=== PATIENT | female | born 1970 | race Caucasian/White ===

== ENCOUNTER → 2017-02-24 13:46 | Outpatient (CLI) | payer BC, SELFPAY ==
[2017-02-24 15:18] LABS: Basophils # 0.1 K/mm3 (0-0.2); Basophils % 0.5 % (0.1-2.0); Eosinophils # 0.1 K/mm3 (0.0-0.4); Eosinophils % 0.7 % (0.1-12.0); Hematocrit 42.2 % (37.0-47.0); Hemoglobin 13.5 g/dL (12.2-16.2); Lymphocytes # 3.4 K/mm3 (0.7-4.5); Lymphocytes % 34.4 K/mm3 (10-50); Mean Corpuscular HGB Conc 31.9 g/dL (31.8-35.4); Mean Corpuscular Hemoglobin 29.2 pg (27.0-31.2); Mean Corpuscular Volume 91.5 fl (81-99); Mean Platelet Volume 7.9 fl (7.4-10.4); Monocytes # 0.6 K/mm3 (0.1-1.0); Neutrophils # 5.7 K/mm3 (1.8-7.8); Neutrophils % 58.3 % (37.0-80.0); Platelet Count 383 K/mm3 (142-424); Red Blood Count 4.61 M/mm3 (4.20-5.40); White Blood Count 9.8 K/mm3 (4.8-10.8)
[2017-02-24 15:34] LABS: Alanine Aminotransferase 25 U/L (12-78); Albumin Level 3.6 gm/dL (3.4-5.0); Albumin/Globulin Ratio 1.1 (1.1-1.8); Alkaline Phosphatase 92 U/L (46-116); Anion Gap 12.9 mEq/L (5-15); Aspartate Amino Transferase 19 U/L (15-37); Bilirubin,Total 0.2 mg/dL (0.2-1.0); Blood Urea Nitrogen 15 mg/dL (7-18); Calcium 8.5 mg/dL (8.5-10.1); Carbon Dioxide 27 mmol/L (21.0-32.0); Chloride 105 mmol/L (98-107); Creatinine,Serum 0.61 mg/dL (0.55-1.02); Estimated Glomerular Filt Rate 106 ml/min (>60); Free T4 (Free Thyroxine) 1.12 ng/dl (0.76-1.46); GFR (African American) 128 ML/MIN (>60); Globulin 3.3 gm/dl (1.3-3.2); Glucose 86 mg/dL (74-106); Potassium 3.9 mmoL/L (3.5-5.1); Sodium 141 mmol/L (136-145); Total Protein,Serum 6.9 gm/dL (6.4-8.2)
[2017-02-26 17:01] LABS: Antinuclear Antibodies, IFA Negative (.); Endomysial IgA Antibody Negative (Negative); Immunoglobulin E, Total 14 IU/mL (0-100); Tissue Transglutaminase IgA Ab <2 U/mL (0-3); Tissue Transglutaminase IgG Ab <2 U/mL (0-5); Vitamin D 25 Hydroxy 25.7 ng/mL (30.0-100.0)
[2017-02-26 17:02] LABS: Deamidated Gliadin Abs, IgA 6 units (0-19); Deamidated Gliadin Abs, IgG 3 units (0-19); Thyroglobulin Level <1.0 IU/mL (0.0-0.9); Thyroid Peroxidase Antibodies 8 IU/mL (0-34)
[2017-02-27 09:13] LABS: Reticulin IgA Antibody Negative titer (Neg:<1:2.5)
[2017-03-09 17:12] LABS: Beef (Bos spp) IgE <0.10 kU/L (<0.35); Lamb/Mutton (Ovis spp) IgE <0.10 kU/L (<0.35)
== END ==
PROVIDERS: PCP Allergy & Immunology; Visit Provider Allergy & Immunology
DX: E55.9 Vitamin D deficiency, unspecified (principal); L29.9 Pruritus, unspecified
CPT/HCPCS: 36415; 80053; 82652; 82776; 82785; 84439; 84443; 85025; 86038; 86256; 86376; 86800

== ENCOUNTER → 2018-02-10 08:09 | Outpatient (CLI) | payer BC, SELFPAY ==
--- NOTE | 2018-02-10 08:12 | MM_ITS ---
MM Dig screening mamm BI w/CAD CAD Screening COMPARISON: Digital mammograms with CAD 02/21/2014 INDICATION: There is no personal or family history of breast cancer TECHNIQUE: Standard CC and MLO images were obtained. R2 CAD reviewed. FINDINGS: Scattered fibroglandular densities are seen in both breasts slightly more prominent left breast than right. There is no new or suspicious lesion in either breast and there are no suspicious microcalcifications. IMPRESSION: Fibrofatty parenchyma no suspicious lesion seen BI-RADS Category: 1 Negative RECOMMENDED FOLLOW-UP: 1YR - 1 YEAR FOLLOW-UP (A letter has been sent to the patient regarding results of the study.)
== END ==
PROVIDERS: PCP Nurse Practitioner Family; Visit Provider Nurse Practitioner Family
DX: Z12.31 Encounter for screening mammogram for malignant neoplasm of breast (principal)
CPT/HCPCS: 77067

== ENCOUNTER 2019-12-08 16:12 | Emergency (ER) | payer BC, SELFPAY ==
[2019-12-08 17:05] VITALS: BP 142/80; PULSE 108; RESP 19; TEMP 36.8; O2SAT 99; BMI 33.6
--- NOTE | 2019-12-08 17:27 | HMH.EDUTC ---
[facility] [place] Clinical Impression: Right otitis media Qualifiers: Otitis media type: suppurative Chronicity: acute Recurrence: non-recurrent Spontaneous tympanic membrane rupture: without spontaneous rupture Qualified Code(s): H66.001 - Acute suppurative otitis media without spontaneous rupture of ear drum, right ear Disposition: Home, Self-Care Condition on Discharge: Good Instructions: DI for Otitis Media (Middle Ear Infection)-Child Additional Instructions: Call if rash develops (consistent with shingles) Prescriptions: clindamycin HCL [Cleocin HCl] 300 mg PO TID 10 Days #30 cap Transmission Status: Pending to [email or web address] predniSONE [Prednisone 20mg Tab] 20 mg PO BID 5 Days #10 tab Transmission Status: [email or web address] Referrals: Aura Stapleton [Primary Care Provider] - Time of Disposition: 17:35 Medical Decision Making - Albino Inquiry Pt receiving controlled substance: No Vital Signs: 12/08/19 17:05 Temperature 98.2 F Temperature Source Oral Pulse Rate [Right Brachial] 108 H Respiratory Rate 19 Blood Pressure [Right Arm] 142/80 H Blood Pressure Mean [Right Arm] 100 Blood Pressure Source [Right Arm] Automatic Cuff Blood Pressure Position [Right Arm] Sitting 02 Sat by Pulse Oximetry 99 Oxygen Delivery Method Room Air [facility] [place] - General Stated complaint: R ear pain Time Seen by Provider: 12/08/19 17:31 Mode of Arrival: Ambulatory Source of Information: Patient Limitations: No Limitations Description of Symptoms (Recalled from Triage Doc. by RN): PATIENT C/O PAIN IN RIGHT EAR, HEAD AND NECK SINCE YESTERDAY HEENT Symptoms (Recalled from RN notes): Yes Resp Symptoms (Recalled from RN notes): No Skin Symptoms (Recalled from RN notes): No MS Symptoms (Recalled from RN notes): No Functional Status (Recalled from RN notes): WNL - History of Present Illness Provider Complaint: Right ear pain, pain in right eye and right side of face since last night. No rash. No fever. Has taken Motrin, Sudafed with a little relief. Onset (ago): day(s) (1) Location: face Radiation: non-radiation Relieving factors: none Exacerbating factors: none Associated symptoms: denies other symptoms Treatments prior to arrival: none - Related Data Home Medications Medication Instructions Recorded Confirmed Cimetidine [Tagamet Hb] 200 mg PO DAILY 01/02/19 01/24/19 PARoxetine HCL [Paxil 20mg Tablet] 20 mg PO DAILY 01/02/19 01/24/19 Previous Rx's Medication Instructions Recorded Benzonatate [Tessalon Perle 100mg 100 mg PO TIDP PRN #30 cap 01/24/19 Cap] Brompheniramine/Pseudoephed/Dm 5 ml PO Q6HP PRN #240 syrup 01/24/19 [Bromfed Dm Cough Syrup] Doxycycline Hyclate [Doxycycline 100 mg PO Q12 10 Days #20 cap 01/24/19 100mg Capsule] predniSONE [Prednisone 20mg 20 mg PO BID 4 Days #8 tab 01/24/19 Tab] clindamycin HCL [Cleocin HCl] 300 mg PO TID 10 Days #30 cap 12/08/19 predniSONE [Prednisone 20mg 20 mg PO BID 5 Days #10 tab 12/08/19 Tab] Allergies Allergy/AdvReac Type Severity Reaction Status Date / Time amoxicillin [AMOXICILLIN] Allergy Unknown Verified 06/01/17 13:48 cefaclor [CEFACLOR] Allergy Unknown Verified 06/01/17 13:48 cephalexin [CEPHALEXIN] Allergy Unknown Verified 06/01/17 13:48 oxycodone [OXYCODONE] Allergy Unknown Verified 06/01/17 13:48 Penicillins [PENICILLINS] Allergy Unknown Verified 06/01/17 13:48 povidone-iodine Allergy Unknown Verified 06/01/17 13:48 [From BETADINE] Sulfa (Sulfonamide Allergy Unknown Verified 06/01/17 13:48 Antibiotics) [SULFA (SULFONAMIDE ANTIBIOTICS)] sumatriptan [SUMATRIPTAN] Allergy Unknown Verified 06/01/17 13:48 - Worker's Comp Is this a Worker's Comp case?: No H History - Hepatitis A Screen Drug use history?: No High risk sexual behaviors?: No History of sexually transmitted infection?: No Currently employed?: No Childcare worker?: No Do you have indoor plumbing?:
[2019-12-08 17:39] VITALS: BP 142/80; PULSE 108; RESP 19; TEMP 36.8; O2SAT 99
== END 2019-12-08 17:44 | disposition home or self-care (01) ==
PROVIDERS: Emergency Provider Physician Assistant; PCP Nurse Practitioner Family
DX: H66.001 Acute suppurative otitis media without spontaneous rupture of ear drum, right ear (principal); Z88.0 Allergy status to penicillin; Z88.2 Allergy status to sulfonamides; Z88.5 Allergy status to narcotic agent
CPT/HCPCS: 99201

== ENCOUNTER → 2019-12-22 16:45 | Outpatient (CLI) | payer BC, SELFPAY ==
--- NOTE | 2019-12-22 16:47 | MM_ITS ---
PROCEDURE: MM DIG SCREENING MAMM BI W/CAD Digital Breast Tomosynthesis Included CLINICAL INDICATION: SCREENING There is no personal or family history of breast cancer. COMPARISON: MG DMSB DIG MAMM-SCREEN SOFIE from 02/21/2014 MG [facility]BI MM Dig screening mamm BI w/CAD from 02/10/2018 TECHNIQUE: Standard CC and MLO images and 3D Tomosynthesis was obtained. R2 CAD reviewed. FINDINGS: The breasts are composed primarily of fat with minimal scattered fibroglandular densities in each breast. There is a mole marker on each breast. There is no suspicious lesion in either breast and no suspicious microcalcifications. IMPRESSION: Fibrofatty parenchyma with no suspicious lesions seen BI-RAD Category: 2 Benign Finding(s) FOLLOW-UP: 1YR 1 Year Follow-up (A letter has been sent to the patient regarding results of the study.) Dictated by: Dr. Lamont Riley MD 12/26/2019 14:06 Dr. Lamont Riley MD in [place] 12/26/2019 14:06
== END ==
PROVIDERS: PCP Nurse Practitioner Family; Visit Provider Nurse Practitioner Family
DX: Z12.31 Encounter for screening mammogram for malignant neoplasm of breast (principal)
CPT/HCPCS: 77063; 77067

== ENCOUNTER 2020-10-16 13:17 | Emergency (ER) | payer BC, SELFPAY ==
[2020-10-16 14:09] VITALS: PULSE 96; RESP 20; TEMP 36.9; O2SAT 95; BMI 29.7
--- NOTE | 2020-10-16 14:09 | HMH.EDUTC ---
[facility] [place] Impression: Viral syndrome, Exposure to COVID-19 virus Otitis media Qualifiers: Otitis media type: suppurative Chronicity: acute Laterality: bilateral Recurrence: non-recurrent Spontaneous tympanic membrane rupture: without spontaneous rupture Qualified Code(s): H66.003 - Acute suppurative otitis media without spontaneous rupture of ear drum, bilateral Disposition: Home, Self-Care Condition on Discharge: Good Instructions: Middle Ear Infection, DI for COVID-19 (Suspected or Confirmed ), Preventing the Spread of Coronavirus Discharge Instructions Additional Instructions: Drink plenty of fluids. Take tylenol or ibuprofen for pain or fever. Take the medications as directed. Follow up with your regular doctor. GO TO THE ER FOR ANY WORSENING SYMPTOMS Quarantine until you know the results of your covid-19 test. If it is positive, the health department should call you and give you further instructions about your length of Quarantine and other things. Notify your school or workplace of your results and follow their instructions regarding return to work/school. Prescriptions: clindamycin HCL [Cleocin HCl] 300 mg PO Q8H #10 cap Transmission Status: Received by [facility] methylPREDNISolone [Medrol] 4 mg PO DIRECTED 6 Days #21 packet Transmission Status: Received by [facility] Benzonatate [Tessalon Perle 100mg Cap] 100 mg PO TIDP PRN #30 cap PRN Reason: Cough Transmission Status: Received by [facility] Referrals: Aura Stapleton [Primary Care Provider] - Forms: Work/School Release Time of Disposition: 14:49 Medical Decision Making - Medical Records Medical records reviewed: No: I reviewed the patient's medical records. - Albino Inquiry Pt receiving controlled substance: No Vital Signs: 10/16/20 14:09 10/16/20 14:12 Temperature 98.5 F 98.5 F Temperature Source Oral Pulse Rate 96 H Pulse Rate [Left] 96 H Respiratory Rate 20 20 Blood Pressure 150/89 H 02 Sat by Pulse Oximetry 95 - Lab Data Lab results reviewed: Yes: I reviewed the patient's lab results. Lab Results 10/16/20 14:38: Strep Scn Rapid Clinic Negative [facility] [place] - General Stated complaint: ear pain,chest congestion, headache Time Seen by Provider: 10/16/20 14:09 - History of Present Illness Provider Complaint: She c/o bilateral ear pain, scratchy sore throat, a dry cough and nausea for the past 2 days. She has been vaccinated against covid-19 last april with the pfizer vaccine. 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. - Related Data Home Medications Medication Instructions Recorded Confirmed Cimetidine [Tagamet Hb] 200 mg PO DAILY 01/02/19 01/24/19 PARoxetine HCL [Paxil 20mg Tablet] 20 mg PO DAILY 01/02/19 01/24/19 Previous Rx's Medication Instructions Recorded Benzonatate [Tessalon Perle 100mg 100 mg PO TIDP PRN #30 cap 01/24/19 Cap] Brompheniramine/Pseudoephed/Dm 5 ml PO Q6HP PRN #240 syrup 01/24/19 [Bromfed Dm Cough Syrup] Doxycycline Hyclate [Doxycycline 100 mg PO Q12 10 Days #20 cap 01/24/19 100mg Capsule] predniSONE [Prednisone 20mg 20 mg PO BID 4 Days #8 tab 01/24/19 Tab] clindamycin HCL [Cleocin HCl] 300 mg PO TID 10 Days #30 cap 12/08/19 predniSONE [Prednisone 20mg 20 mg PO BID 5 Days #10 tab 12/08/19 Tab] Benzonatate [Tessalon Perle 100mg 100 mg PO TIDP PRN #30 cap 10/16/20 Cap] clindamycin HCL [Cleocin HCl] 300 mg PO Q8H #10 cap 10/16/20 methylPREDNISolone [Medrol] 4 mg PO DIRECTED 6 Days #21 10/16/20 packet Allergies Allergy/AdvReac Type Severity Reaction Status Date / Time amoxicillin [AMOXICILLIN] Allergy Unknown Verified 06/01/17 13:48 cefaclor [CEFACLOR] Allergy Unknown Verified 06/01/17 13:48 cephalexin [CEPHALEXIN] Allergy Unknown Verified 06/01/17 13:48 oxycodone [OXYCODONE] Allergy Unknown Verified 06/01/17 13:48 Penicillins [PENICILLINS] Allergy Unknown Verified 06/01/17 1
[2020-10-16 14:12] VITALS: BP 150/89; PULSE 96; RESP 20; TEMP 36.9
[2020-10-16 14:51] LABS: UTC Strep Screen (Rapid) Negative (Negative)
== END 2020-10-16 15:02 | disposition home or self-care (01) ==
PROVIDERS: Emergency Provider Nurse Practitioner Family; PCP Nurse Practitioner Family
DX: H66.003 Acute suppurative otitis media without spontaneous rupture of ear drum, bilateral (principal); B34.9 Viral infection, unspecified; Z20.822 Contact with and (suspected) exposure to COVID-19; F41.9 Anxiety disorder, unspecified; Z88.0 Allergy status to penicillin; Z88.2 Allergy status to sulfonamides; Z88.8 Allergy status to other drugs, medicaments and biological substances
CPT/HCPCS: 87880; 99202; G0463; U0003

== ENCOUNTER 2020-10-23 15:17 | Emergency (ER) | payer BC, SELFPAY ==
[2020-10-23 16:49] VITALS: BP 146/91; PULSE 91; RESP 23; TEMP 36.6; O2SAT 98; BMI 28.5
--- NOTE | 2020-10-23 16:54 | HMH.EDUTC ---
[facility] – [place] Clinical Impression: Otitis media Qualifiers: Otitis media type: unspecified Laterality: right Qualified Code(s): H66.91 - Otitis media, unspecified, right ear Disposition: Home, Self-Care Condition on Discharge: Good Instructions: Middle Ear Infection, Ofloxacin Otic, Clarithromycin Additional Instructions: *Monitor Temp, Over the counter Motrin or Tylenol as directed/as needed Tylenol every 4 hours and Motrin every 6 hours (as long as your family doctor has told you that you can take it) for fever or pain. and straight to ER if unable to lower temp less than 101.0 after medication given *Warm fluids like tea with honey may help to soothe the throat open up nasal passages *Sleep elevated *Humidifier/Vaporizer Take medication as prescribed Follow up with your Family Doctor if no improvement or any worsening of symptoms Follow up IMMEDIATELY for new or worsening symptoms or no Noticeable improvement over the next 48-72 hours. 911 for difficulty breathing or swallowing Prescriptions: Clarithromycin [Biaxin 500mg Tablet] 500 mg PO BID 10 Days #20 tab Transmission Status: Pending to [facility] Ofloxacin [Floxin 0.3% OTIC Solution 5mL] 10 drops EAR-RIGHT BID 10 Days #1 each Transmission Status: Pending to [facility] Referrals: Aura Stapleton [Primary Care Provider] - Time of Disposition: 17:12 Medical Decision Making - Albino Inquiry Pt receiving controlled substance: No Albino was queried for this patient: No Vital Signs: 10/23/20 16:49 Temperature 98 F Temperature Source Oral Pulse Rate [Right] 91 H Respiratory Rate 23 Blood Pressure [Right Arm] 146/91 H Blood Pressure Mean [Right Arm] 109 02 Sat by Pulse Oximetry 98 Medical Decision Narrative: Due to allergies medications discussed with pharmacy [facility] [place] HPI - General Stated complaint: ear infection Time Seen by Provider: 10/23/20 16:54 Description of Symptoms (Recalled from Triage Doc. by RN): BILATERAL EAR PAIN & CONGESTION X1 WEEK HEENT Symptoms (Recalled from RN notes): Yes Resp Symptoms (Recalled from RN notes): No Skin Symptoms (Recalled from RN notes): No MS Symptoms (Recalled from RN notes): No Functional Status (Recalled from RN notes): WNL - History of Present Illness Provider Complaint: Patient states that she has been having pain in her ears for over a week State that she was recently seen and treated but has continued to get worse State that now right ear is painful and hurts when she lays on it and feels like it is raw and swollen - Related Data Home Medications Medication Instructions Recorded Confirmed Cimetidine [Tagamet Hb] 200 mg PO DAILY 01/02/19 01/24/19 PARoxetine HCL [Paxil 20mg Tablet] 20 mg PO DAILY 01/02/19 01/24/19 Previous Rx's Medication Instructions Recorded Benzonatate [Tessalon Perle 100mg 100 mg PO TIDP PRN #30 cap 01/24/19 Cap] Brompheniramine/Pseudoephed/Dm 5 ml PO Q6HP PRN #240 syrup 01/24/19 [Bromfed Dm Cough Syrup] Doxycycline Hyclate [Doxycycline 100 mg PO Q12 10 Days #20 cap 01/24/19 100mg Capsule] predniSONE [Prednisone 20mg 20 mg PO BID 4 Days #8 tab 01/24/19 Tab] clindamycin HCL [Cleocin HCl] 300 mg PO TID 10 Days #30 cap 12/08/19 predniSONE [Prednisone 20mg 20 mg PO BID 5 Days #10 tab 12/08/19 Tab] Benzonatate [Tessalon Perle 100mg 100 mg PO TIDP PRN #30 cap 10/16/20 Cap] clindamycin HCL [Cleocin HCl] 300 mg PO Q8H #10 cap 10/16/20 methylPREDNISolone [Medrol] 4 mg PO DIRECTED 6 Days #21 10/16/20 packet Clarithromycin [Biaxin 500mg 500 mg PO BID 10 Days #20 tab 10/23/20 Tablet] Ofloxacin [Floxin 0.3% OTIC 10 drops EAR-RIGHT BID 10 Days #1 10/23/20 Solution 5mL] each Allergies Allergy/AdvReac Type Severity Reaction Status Date / Time amoxicillin [AMOXICILLIN] Allergy Unknown Verified 10/23/20 16:53 cefaclor [CEFACLOR] Allergy Unknown Verified 10/23/20 16:53 cephalexin [CEPHALEXIN] Allergy Unknown Verified 10/23/20
[2020-10-23 17:24] VITALS: BP 146/91; PULSE 91; RESP 20; TEMP 36.6; O2SAT 98
== END 2020-10-23 17:25 | disposition home or self-care (01) ==
PROVIDERS: Emergency Provider Nurse Practitioner; PCP Nurse Practitioner Family
DX: H66.91 Otitis media, unspecified, right ear (principal); F41.9 Anxiety disorder, unspecified; Z88.0 Allergy status to penicillin; Z88.2 Allergy status to sulfonamides
CPT/HCPCS: 99202; G0463

== ENCOUNTER → 2020-12-23 15:30 | Outpatient (CLI) | payer BC, SELFPAY ==
--- NOTE | 2020-12-23 15:35 | MM_ITS ---
PROCEDURE INFORMATION: Exam: MG Bilateral Screening 3D Mammography Exam date and time: 12/23/2020 3:35 PM Age: 50 years old Clinical indication: Encounter for screening mammogram for malignant neoplasm of breast TECHNIQUE: Imaging protocol: Bilateral screening tomosynthesis and 2D mammography including computer-aided detection (CAD) when performed. COMPARISON: 1. MG MM DIG SCREENING MAMM BI W/CAD 12/22/2019 4:46 PM 2. MG SCBI MM Dig screening mamm BI w/CAD 02/10/2018 8:40 AM FINDINGS: MAMMOGRAPHY: Breast composition: The breast tissue is composed of scattered areas of fibroglandular density. Mass: None. Architectural distortion: None. Calcifications: No suspicious calcifications. Asymmetric density: None. Skin thickening: None. Axillary adenopathy: None. IMPRESSION: No mammographic evidence of malignancy. Annual screening is recommended unless otherwise clinically indicated. ASSESSMENT: BI-RADS Category 1: Negative
== END ==
PROVIDERS: PCP Nurse Practitioner Family; Visit Provider Nurse Practitioner Family
DX: Z12.31 Encounter for screening mammogram for malignant neoplasm of breast (principal)
CPT/HCPCS: 77063; 77067

== ENCOUNTER 2021-02-04 10:00 | Outpatient (CLI) | payer BC, SELFPAY ==
[2021-02-04] VITALS (7 sets, daily range): BP systolic 126–148; BP diastolic 73–80; PULSE 77–98; RESP 16–20; TEMP 37.2; O2SAT 94–98; BMI 28.8
== END 2021-02-04 12:00 | disposition home or self-care (01) ==
LOC: INF 10:00
PROVIDERS: PCP Nurse Practitioner Family; Visit Provider Nurse Practitioner Family
DX: U07.1 COVID-19 (principal); Z23 Encounter for immunization
CPT/HCPCS: 96365

== ENCOUNTER → 2021-02-19 14:36 | Outpatient (CLI) | payer BC, SELFPAY | PROVIDERS: PCP Nurse Practitioner Family; Visit Provider Nurse Practitioner | DX: Z20.822 Contact with and (suspected) exposure to COVID-19 (principal) | CPT/HCPCS: C9803; U0003; U0005 ==

== ENCOUNTER 2021-05-14 16:50 | Emergency (ER) | payer OTHER, SELFPAY ==
--- NOTE | 2021-05-14 18:29 | XR_ITS ---
PROCEDURE INFORMATION: Exam: XR Right Femur Exam date and time: 05/14/2021 6:37 PM Age: 50 years old Clinical indication: Injury or trauma; Fall; Work related; Blunt trauma; Thigh or upper leg; Right TECHNIQUE: Imaging protocol: XR Right femur. Views: 1 view. COMPARISON: No relevant prior studies available. FINDINGS: Bones/joints: No acute fracture or malalignment. Soft tissues: Unremarkable. IMPRESSION: No acute osseous abnormality in the right femur.
--- NOTE | 2021-05-14 18:29 | XR_ITS ---
PROCEDURE INFORMATION: Exam: XR Right Hand Exam date and time: 05/14/2021 6:50 PM Age: 50 years old Clinical indication: Injury or trauma; Fall; Work related; Blunt trauma (contusions or hematomas); Hand; Right TECHNIQUE: Imaging protocol: XR Right hand. Views: 3 or more views. COMPARISON: No relevant prior studies available. FINDINGS: Bones/joints: Accessory ossicle versus chronic sequelae of prior trauma distal to the ulnar styloid process. Slight radial translation of the 1st carpal relative to the trapezium, concerning for acute trapeziometacarpal subluxation. Punctate hyperdensity at the dorsal aspect of the 3rd distal interphalangeal joint. Joint alignment is maintained. No definite acute fractures. Carpal arcs are well-maintained. Soft tissues: Soft tissue edema noted surrounding the wrist. IMPRESSION: 1. Slight radial translation of the 1st carpal relative to the trapezium, concerning for acute trapeziometacarpal subluxation. 2. Punctate hyperdensity at the dorsal aspect of the 3rd distal interphalangeal joint. Joint alignment is maintained. Findings may represent acute avulsion fracture vs nonspecific soft tissue calcification. Please correlate with physical exam.
--- NOTE | 2021-05-14 18:29 | XR_ITS ---
PROCEDURE INFORMATION: Exam: XR Right Forearm Exam date and time: 05/14/2021 6:54 PM Age: 50 years old Clinical indication: Injury or trauma; Fall; Work related; Blunt trauma (contusions or hematomas); Arm, lower; Right TECHNIQUE: Imaging protocol: XR Right forearm. Views: 2 views. COMPARISON: CR XR HAND RT MIN 3V 05/14/2021 6:50 PM FINDINGS: Bones/joints: No acute fracture or malalignment. Soft tissues: Unremarkable. IMPRESSION: No acute osseous abnormality in the right forearm.
--- NOTE | 2021-05-14 18:29 | XR_ITS ---
PROCEDURE INFORMATION: Exam: XR Right Tibia and Fibula Exam date and time: 05/14/2021 6:41 PM Age: 50 years old Clinical indication: Injury or trauma; Fall; Work related; Blunt trauma; Lower leg; Right TECHNIQUE: Imaging protocol: XR Right tibia and fibula. Views: 2 views. COMPARISON: CR [id number]-[id number] VIEWS 12/18/2015 3:14 PM FINDINGS: Bones/joints: No acute fracture or malalignment. Soft tissues: Unremarkable. IMPRESSION: No acute osseous abnormality in the right tibia or fibula.
--- NOTE | 2021-05-14 18:29 | XR_ITS ---
PROCEDURE INFORMATION: Exam: XR Right Elbow Exam date and time: 05/14/2021 6:55 PM Age: 50 years old Clinical indication: Injury or trauma; Fall; Work related; Blunt trauma (contusions or hematomas); Elbow; Right TECHNIQUE: Imaging protocol: XR Right elbow. Views: 3 or more views. COMPARISON: CR XR FOREARM RT 2V 05/14/2021 6:54 PM FINDINGS: Bones/joints: No acute fracture or malalignment. No significant elbow joint effusion. Soft tissues: Unremarkable. IMPRESSION: No acute osseous abnormality in the right elbow.
--- NOTE | 2021-05-14 18:29 | XR_ITS ---
PROCEDURE INFORMATION: Exam: XR Right Knee Exam date and time: 05/14/2021 6:39 PM Age: 50 years old Clinical indication: Injury or trauma; Fall; Work related; Blunt trauma; Knee; Right TECHNIQUE: Imaging protocol: XR Right knee. Views: 3 views. COMPARISON: CR XR FEMUR RT 1V 05/14/2021 6:37 PM FINDINGS: Bones/joints: No acute fracture or malalignment. Soft tissues: Unremarkable. IMPRESSION: No acute osseous abnormality in the right knee.
--- NOTE | 2021-05-14 18:31 | HMH.EDUTC ---
[facility] [place]: Fall Qualifiers: Encounter type: initial encounter Qualified Code(s): W19.XXXA - Unspecified fall, initial encounter Strain of right wrist Qualifiers: Encounter type: initial encounter Qualified Code(s): S66.911A - Strain of unspecified muscle, fascia and tendon at wrist and hand level, right hand, initial encounter Sprain of right hand Qualifiers: Encounter type: initial encounter Qualified Code(s): S63.91XA - Sprain of unspecified part of right wrist and hand, initial encounter Contusion of right knee Qualifiers: Encounter type: initial encounter Qualified Code(s): S80.01XA - Contusion of right knee, initial encounter Contusion of right leg Qualifiers: Encounter type: initial encounter Qualified Code(s): S80.11XA - Contusion of right lower leg, initial encounter Disposition: Home, Self-Care Condition on Discharge: Good Instructions: Wrist Sprain, DI for Wrist Sprain, DI for Knee Sprain, DI for Contusion, DI for Hand Injury Additional Instructions: Rest the extremity, apply ice for 15 minutes as tolerated three or four times per day, Wear the rajiv wrap for compression, Elevate the extremity as tolerated while you are resting. Take ibuprofen for pain. I sent in a prescription to your pharmacy. Follow up with Dr. Abbott (orthopedics). Sometimes there can be fractures that don't show up well on the first set of x-rays. So, you should follow up if you continue to have symptoms. I put in a referral but you need to call his office and schedule an appointment. Follow up with your regular doctor. GO TO THE ER FOR ANY WORSENING SYMPTOMS Prescriptions: Ibuprofen [Ibuprofen 600mg Tablet] 600 mg PO Q6HP PRN #30 tab PRN Reason: Mild Pain Transmission Status: Received by [facility] Referrals: Aura Stapleton [Primary Care Provider] - Carlos Abbott MD [Staff Physician] - Forms: Work/School Release Time of Disposition: 19:55 Medical Decision Making - Medical Records Medical records reviewed: No: I reviewed the patient's medical records. - Albino Inquiry Pt receiving controlled substance: No Vital Signs: 05/14/21 18:35 05/14/21 20:30 Temperature 98.1 F 98.1 F Temperature Source Oral Pulse Rate 96 H Pulse Rate [Left] 96 H Respiratory Rate 18 18 Blood Pressure 155/79 H Blood Pressure [Right Arm] 155/79 H Blood Pressure Mean [Right Arm] 104 02 Sat by Pulse Oximetry 98 [facility] [place] - General Stated complaint: wc 05/14@1400 INJURED r lEG AND wRIST Time Seen by Provider: 05/14/21 19:15 - History of Present Illness Provider Complaint: She states that today she stepped down off her side walk and her right foot went into a hole and caused her to fall. She came down on her right knee and and her right forearm and elbow. She is having right knee pain, right lower leg pain, right hand pain, right wrist pain and right elbow pain. - Related Data Home Medications Medication Instructions Recorded Confirmed fluticasone propionate 50 1 spray INTRANASAL BID 01/13/21 02/04/21 mcg/actuation nasal spray,suspension pantoprazole 40 mg tablet,delayed 40 mg PO DAILY tab 01/13/21 02/04/21 release Ascorbic Acid/Ascorbate Sodium 500 mg PO DAILY 02/04/21 02/04/21 [Vitamin C 500 mg Tablet Chew] Cholecalciferol (Vitamin D3) 1,000 unit PO DAILY 02/04/21 02/04/21 [Vitamin D3 1,000 Unit Cap] Fexofenadine HCl [Aller-Ease] 180 mg PO DAILY 02/04/21 02/04/21 Ibuprofen [Advil 200mg Tab] 400 mg PO DAILY 02/04/21 02/04/21 Lactobacillus Combo No.11 1 each PO DAILY 02/04/21 02/04/21 [Probiotic] Zinc 50 mg PO DAILY 02/04/21 02/04/21 guaiFENesin [Mucinex 600mg tablet] 600 mg PO DAILY 02/04/21 02/04/21 Previous Rx's Medication Instructions Recorded Ibuprofen [Ibuprofen 600mg 600 mg PO Q6HP PRN #30 tab 05/14/21 Tablet] Allergies Allergy/AdvReac Type Severity Reaction Status Date / Time amoxicillin [AMOXICILLIN] Allergy Unknown [facility]i
[2021-05-14 18:35] VITALS: BP 155/79; PULSE 96; RESP 18; TEMP 36.7; O2SAT 98; BMI 29.7
[2021-05-14 20:30] VITALS: BP 155/79; PULSE 96; RESP 18; TEMP 36.7
== END 2021-05-14 20:32 | disposition home or self-care (01) ==
PROVIDERS: Emergency Provider Nurse Practitioner Family; PCP Nurse Practitioner Family
DX: S80.01XA Contusion of right knee, initial encounter (principal); S63.91XA Sprain of unspecified part of right wrist and hand, initial encounter; S80.11XA Contusion of right lower leg, initial encounter; W01.0XXA Fall on same level from slipping, tripping and stumbling without subsequent striking against object, initial encounter; Y92.480 Sidewalk as the place of occurrence of the external cause; Z88.0 Allergy status to penicillin; Z88.2 Allergy status to sulfonamides
CPT/HCPCS: 73080; 73090; 73130; 73551; 73562; 73590; 99213; G0463

== ENCOUNTER 2021-12-25 15:45 | Emergency (ER) | payer BC, SELFPAY ==
--- NOTE | 2021-12-25 16:00 | EXP.UTC ---
Discharge Plan Disposition Patient Disposition: Home, Self-Care Condition: Good Prescriptions Prescriptions: New benzonatate [benzonatate] 100 mg capsule 100 mg PO TIDP PRN (Reason: Cough) Qty: 30 0RF ondansetron 4 mg Tablet,Disintegrating 4 mg PO Q8H PRN (Reason: Nausea) Qty: 20 0RF No Action pantoprazole 40 mg tablet,delayed release (DR/EC) 40 mg PO DAILY fluticasone propionate [Flonase Allergy Relief] 50 mcg/actuation spray,suspension 1 spray INTRANASAL BID Rx Instructions: administer into each nostril ibuprofen 200 MG tablet 400 mg PO DAILY zinc 50 MG tablet 50 mg PO DAILY cholecalciferol (vitamin D3) 1,000 UNIT capsule 1,000 unit PO DAILY ascorbic acid-ascorbate sodium 500 MG tablet,chewable 500 mg PO DAILY lactobacillus combo no.11 1 EACH capsule, sprinkle 1 each PO DAILY guaifenesin 600 MG tablet extended release 12hr 600 mg PO DAILY fexofenadine 180 MG tablet 180 mg PO DAILY ibuprofen 600 MG tablet 600 mg PO Q6HP PRN (Reason: Mild Pain) Qty: 30 0RF Referrals Follow up/Referrals: Aura Stapleton [Primary Care Provider] - See instructions Activity Restrictions/Add. Instructions Additional Instructions/Restrictions: Drink plenty of fluids. Take tylenol or ibuprofen for pain or fever. Follow up with your regular doctor. 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 He was told to come here and get checked for the flu. she has had a cough and sinus drainage, but she states that is normal for her at this time of the year and she denies any fever/chills/malaise/body aches. Related Data Home Medications Medication Instructions Recorded Confirmed fluticasone propionate 50 1 spray intranasal BID Allergy 01/13/21 02/04/21 mcg/actuation nasal symptoms spray,suspension (Flonase Allergy Relief) pantoprazole 40 mg tablet,delayed 40 mg PO DAILY GERD 01/13/21 02/04/21 release ascorbic acid-ascorbate sodium 500 mg PO DAILY Supplement 02/04/21 02/04/21 (vitamin C) 500 mg chewable tablet cholecalciferol (vitamin D3) 25 1,000 unit PO DAILY Supplement 02/04/21 02/04/21 mcg (1,000 unit) capsule fexofenadine 180 mg tablet 180 mg PO DAILY Allergy symptoms 02/04/21 02/04/21 guaifenesin 600 mg tablet, 600 mg PO DAILY Congestion/chest 02/04/21 02/04/21 extended release 12 hr congesti ibuprofen 200 mg tablet 400 mg PO DAILY Pain 02/04/21 02/04/21 lactobacillus combo no.11 15 1 each PO DAILY Supplement 02/04/21 02/04/21 billion cell sprinkle capsule zinc 50 mg tablet 50 mg PO DAILY Supplement 02/04/21 02/04/21 Previous Rx's Medication Instructions Recorded ibuprofen 600 mg tablet 600 mg PO Q6HP PRN Mild Pain #30 05/14/21 tabs benzonatate 100 mg capsule 100 mg PO TIDP PRN Cough #30 caps 12/25/21 ondansetron 4 mg disintegrating 4 mg PO Q8H PRN Nausea #20 tabs 12/25/21 tablet Allergies Allergy/AdvReac Type Severity Reaction Status Date / Time amoxicillin [AMOXICILLIN] Allergy Unknown Verified 12/25/21 16:19 cefaclor [CEFACLOR] Allergy Unknown Verified 12/25/21 16:19 cephalexin [CEPHALEXIN] Allergy Unknown Verified 12/25/21 16:19 oxycodone [OXYCODONE] Allergy Unknown Verified 12/25/21 16:19 Penicillins [PENICILLINS] Allergy Unknown Verified 12/25/21 16:19 povidone-iodine Allergy Unknown Verified 12/25/21 16:19 [From BETADINE] Sulfa (Sulfonamide Allergy Unknown Verified 12/25/21 16:19 Antibiotics) [SULFA (SULFONAMIDE
[2021-12-25 16:16] VITALS: BP 160/83; PULSE 105; RESP 17; TEMP 36.8; O2SAT 97; BMI 29.2
[2021-12-25 16:17] LABS: UTC Influenza A Antigen Negative (Negative); UTC Influenza B Antigen Negative (Negative)
[2021-12-25 17:09] VITALS: BP 160/83; PULSE 105; RESP 17; TEMP 36.8
[2021-12-25 17:24] LABS: Adenovirus,PCR Not Detected (NotDetected); Bordetella Pertussis Not Detected (NotDetected); Chlamydophila Pneumoniae, PCR Not Detected (NotDetected); Coronavirus 19, PCR Not Detected (NotDetected); Coronavirus 229E Not Detected (NotDetected); Coronavirus NL63 Not Detected (NotDetected); Coronavirus OC43 Not Detected (NotDetected); Coronovirus HKU1,PCR Not Detected (NotDetected); Human Metapneumovirus Not Detected (NotDetected); Influenza A, PCR Not Detected (NotDetected); Influenza AH1, 2009 Not Detected (NotDetected); Influenza AH1, PCR Not Detected (NotDetected); Influenza AH3,PCR Not Detected (NotDetected); Influenza B, PCR Not Detected (NotDetected); Mycoplasma Pneumoniae, PCR Not Detected (NotDetected); Parainfluenza 1, PCR Not Detected (NotDetected); Parainfluenza 2, PCR Not Detected (NotDetected); Parainfluenza 3, PCR Not Detected (NotDetected); Parainfluenza 4, PCR Not Detected (NotDetected); Respiratory Syncytial Virus Not Detected (NotDetected); Rhinovirus/Enterovirus Not Detected (NotDetected)
== END 2021-12-25 17:09 | disposition home or self-care (01) ==
PROVIDERS: Emergency Provider Nurse Practitioner Family; PCP Nurse Practitioner Family
DX: R05.9 Cough, unspecified (principal); R51.9 Headache, unspecified; M79.10 Myalgia, unspecified site; Z79.51 Long term (current) use of inhaled steroids; Z79.899 Other long term (current) drug therapy; Z88.0 Allergy status to penicillin; Z88.1 Allergy status to other antibiotic agents; Z88.2 Allergy status to sulfonamides; Z88.3 Allergy status to other anti-infective agents; Z88.8 Allergy status to other drugs, medicaments and biological substances
CPT/HCPCS: 87581; 87632; 87798; 87804; 99213; C9803; G0463; U0003; U0005

== ENCOUNTER 2022-01-21 13:01 | Emergency (ER) | payer BC, SELFPAY ==
[2022-01-21 13:56] VITALS: BP 129/84; PULSE 116; RESP 18; TEMP 37.7; O2SAT 98; BMI 29.5
--- NOTE | 2022-01-21 14:06 | EXP.UTC ---
Discharge Plan Disposition Patient Disposition: Home, Self-Care Condition: Good Prescriptions Prescriptions: New guaifenesin [Mucinex] 600 mg tablet extended release 12hr 600 mg PO BID PRN (Reason: cough) Qty: 20 0RF azithromycin [Zithromax Z-Roger] 250 mg tablet See Rx Instructions .ROUTE .COMPLEX 5 Days Qty: 6 0RF Rx Instructions: For 250 mg dose pack: take 500 mg today (day 1), then 250 mg for 4 days (days 2-5) prednisone [prednisone] 20 mg tablet 20 mg PO BID 5 Days Qty: 10 0RF No Action pantoprazole 40 mg tablet,delayed release (DR/EC) 40 mg PO DAILY fluticasone propionate [Flonase Allergy Relief] 50 mcg/actuation spray,suspension 1 spray INTRANASAL BID Rx Instructions: administer into each nostril benzonatate [benzonatate] 100 mg capsule 100 mg PO TIDP PRN (Reason: Cough) Qty: 30 0RF ondansetron 4 mg Tablet,Disintegrating 4 mg PO Q8H PRN (Reason: Nausea) Qty: 20 0RF ibuprofen 200 MG tablet 400 mg PO DAILY zinc 50 MG tablet 50 mg PO DAILY cholecalciferol (vitamin D3) 1,000 UNIT capsule 1,000 unit PO DAILY ascorbic acid-ascorbate sodium 500 MG tablet,chewable 500 mg PO DAILY lactobacillus combo no.11 1 EACH capsule, sprinkle 1 each PO DAILY guaifenesin 600 MG tablet extended release 12hr 600 mg PO DAILY fexofenadine 180 MG tablet 180 mg PO DAILY ibuprofen 600 MG tablet 600 mg PO Q6HP PRN (Reason: Mild Pain) Qty: 30 0RF Referrals Follow up/Referrals: Aura Stapleton [Primary Care Provider] - See instructions Activity Restrictions/Add. Instructions Additional Instructions/Restrictions: *Monitor Temp, Over the counter Motrin or Tylenol as directed/as needed Tylenol every 4 hours and Motrin every 6 hours (as long as your family doctor has told you that you can take it) for fever or pain. and straight to ER if unable to lower temp less than 101.0 after medication given *Warm salt water gargles may help to soothe the throat *Throat Lozenges? *Warm fluids like tea with honey may help to soothe the throat? *Sleep elevated *Humidifier/Vaporizer Follow up IMMEDIATELY for new or worsening symptoms or no Noticeable improvement over the next 48-72 hours. 911 for difficulty breathing or swallowing You were tested for today for Upper Respiratory panel with COVID19 your test result should be back in the next 24-48 hours, you may check your results on the [facility] My Health Portal Clinical Impressions Clinical Impression: Sinusitis, Bronchitis Stand Alone Forms Stand Alone Forms: Work/School Release Instructions Patient Instructions: DI for Sinusitis, Sinusitis Discharge ED Provider[place] [facility] [place] General Stated complaint: ear pain, JUSTICE, sob, cough, body aches Mode of Arrival: Ambulatory Limitations: No Limitations Time Seen by Provider: 01/21/22 14:07 Description of Symptoms (Recalled from Triage Doc. 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
[2022-01-21 14:20] VITALS: BP 129/84; PULSE 116; RESP 18; TEMP 37.7; O2SAT 98
[2022-01-21 14:48] LABS: Adenovirus,PCR Not Detected (NotDetected); Bordetella Pertussis Not Detected (NotDetected); Chlamydophila Pneumoniae, PCR Not Detected (NotDetected); Coronavirus 229E Not Detected (NotDetected); Coronavirus NL63 Not Detected (NotDetected); Coronavirus OC43 Not Detected (NotDetected); Coronovirus HKU1,PCR Not Detected (NotDetected); Human Metapneumovirus Not Detected (NotDetected); Influenza A, PCR Not Detected (NotDetected); Influenza AH1, 2009 Not Detected (NotDetected); Influenza AH1, PCR Not Detected (NotDetected); Influenza AH3,PCR Not Detected (NotDetected); Influenza B, PCR Not Detected (NotDetected); Mycoplasma Pneumoniae, PCR Not Detected (NotDetected); Parainfluenza 1, PCR Not Detected (NotDetected); Parainfluenza 2, PCR Not Detected (NotDetected); Parainfluenza 3, PCR Not Detected (NotDetected); Parainfluenza 4, PCR Not Detected (NotDetected); Respiratory Syncytial Virus Not Detected (NotDetected); Rhinovirus/Enterovirus Not Detected (NotDetected)
[2022-01-21 20:34] LABS: Coronavirus 19, PCR Detected (NotDetected)
== END 2022-01-21 14:20 | disposition home or self-care (01) ==
PROVIDERS: Emergency Provider Nurse Practitioner; PCP Nurse Practitioner Family
DX: J40 Bronchitis, not specified as acute or chronic (principal); J32.9 Chronic sinusitis, unspecified
CPT/HCPCS: 87581; 87632; 87798; 99212; C9803; G0463; U0003; U0005

== ENCOUNTER → 2022-06-09 23:37 | Outpatient (CLI) | payer BC, SELFPAY | PROVIDERS: PCP Student in an Organized Health Care Education/Training Program; Visit Provider Student in an Organized Health Care Education/Training Program | DX: J02.9 Acute pharyngitis, unspecified (principal); R69 Illness, unspecified | CPT/HCPCS: 87070; C9803; U0003; U0005 ==

== ENCOUNTER → 2022-09-03 15:39 | Outpatient (CLI) | payer BC, SELFPAY ==
--- NOTE | 2022-09-03 15:43 | MM_ITS ---
PROCEDURE INFORMATION: Exam: MG Bilateral Screening 3D Mammography Exam date and time: 09/03/2022 3:39 PM Age: 52 years old Clinical indication: Screening examination; No personal or family history of breast cancer TECHNIQUE: Imaging protocol: Bilateral Screening tomosynthesis and 2D mammography including computer-aided detection (CAD) when performed. COMPARISON: 1. MG MM DIG SCREENING MAMM BI W/CAD 12/23/2020 3:38 PM 2. MG MM DIG SCREENING MAMM BI W/CAD 12/22/2019 4:46 PM FINDINGS: MAMMOGRAPHY: Breast composition: There are scattered areas of fibroglandular density. Mass: None. Architectural distortion: None. Calcifications: No suspicious calcifications. Asymmetric density: None. Skin thickening: None. Axillary adenopathy: None. IMPRESSION: No mammographic evidence of malignancy. Annual screening is recommended unless otherwise clinically indicated. ASSESSMENT: BI-RADS Category 1: Negative
== END ==
PROVIDERS: PCP Student in an Organized Health Care Education/Training Program; Visit Provider Nurse Practitioner Family
DX: Z12.31 Encounter for screening mammogram for malignant neoplasm of breast (principal)
CPT/HCPCS: 77063; 77067

== ENCOUNTER 2023-09-14 09:50 | Outpatient (CLI) | payer BC, SELFPAY ==
--- NOTE | 2023-09-14 09:53 | MM_ITS ---
PROCEDURE INFORMATION: Exam: MG Bilateral Screening 3D Mammography Exam date and time: 09/14/2023 9:38 AM Age: 53 years old Clinical indication: Screening mammogram TECHNIQUE: Imaging protocol: Bilateral Screening tomosynthesis and 2D mammography including computer-aided detection (CAD) when performed. COMPARISON: 1. MG MM DIG SCREENING MAMM BI W/CAD 09/03/2022 3:39 PM 2. MG MM DIG SCREENING MAMM BI W/CAD 12/23/2020 3:38 PM 3. MG MM DIG SCREENING MAMM BI W/CAD 12/22/2019 4:46 PM 4. MG SCBI MM Dig screening mamm BI w/CAD 02/10/2018 8:40 AM FINDINGS: MAMMOGRAPHY: Breast composition: There are scattered areas of fibroglandular density. Mass: Possible obscured 0.8 cm mass within the upper outer left middle 1/3 should be further assessed with spot views in CC/MLO projection. Ultrasound may also be required. Architectural distortion: No new or suspicious architectural distortion. Calcifications: No new or suspicious calcifications are present Asymmetric density: No new or suspicious asymmetric density is present Skin thickening: None. Axillary adenopathy: None. IMPRESSION: Possible obscured 0.8 cm mass within the upper outer left middle 1/3 should be further assessed with spot views in CC/MLO projection. Ultrasound may also be required. ASSESSMENT: BI-RADS category 0: Incomplete-need additional imaging evaluation
== END 2023-09-14 23:59 | disposition home or self-care (01) ==
LOC: RAD 09:50
PROVIDERS: PCP Nurse Practitioner Family; Visit Provider Nurse Practitioner
DX: Z12.31 Encounter for screening mammogram for malignant neoplasm of breast (principal)
CPT/HCPCS: 77063; 77067

== ENCOUNTER 2023-09-27 13:55 | Outpatient (CLI) | payer BC, SELFPAY ==
--- NOTE | 2023-09-27 14:13 | US_ITS ---
PROCEDURE INFORMATION: Exam: US Left Breast, Complete MG Left Diagnostic Breast Tomosynthesis Exam date and time: 09/27/2023 2:34 PM Age: 53 years old Clinical indication: Patient recalled on the basis of a screening mammogram for further evaluation; Left breast; mass TECHNIQUE: Imaging protocol: Complete ultrasound of all four quadrants of the left breast and the retroareolar regions, including ultrasound of the axilla when performed. Left Diagnostic tomosynthesis and 2D mammography including computer-aided detection (CAD) when performed. Unilateral or bilateral exam. COMPARISON: MG MM DIG MAMM DX UNILAT LT CAD 09/27/2023 1:56 PM FINDINGS: MAMMOGRAPHY: Breast composition: There are scattered areas of fibroglandular density (based on the most recent screening mammogram report). Breast mammogram findings: Digital diagnostic spot compression views of the left breast and 90 degree lateral view of the left breast demonstrate a persistent 0.8 cm mass ULTRASOUND: Breast ultrasound findings: Sonographic images of the left 2 o'clock axis 5 cm from the nipple demonstrates a cluster of benign cysts combined measurement of 0.8 cm most closely corresponding to the mass on mammography. No other solid or cystic masses are noted in the remainder of the left breast. No axillary adenopathy. IMPRESSION: Mass on screening mammography corresponds to underlying cystic change sonographically. There is no mammographic evidence of malignancy.Annual bilateral mammographic screening is recommended unless otherwise clinically indicated. ASSESSMENT: BI-RADS Category 2: Benign.
== END 2023-09-27 23:59 | disposition home or self-care (01) ==
LOC: RAD 13:56
PROVIDERS: PCP Nurse Practitioner Family; Visit Provider Nurse Practitioner Family
DX: R92.2 Inconclusive mammogram (principal); N63.20 Unspecified lump in the left breast, unspecified quadrant
CPT/HCPCS: 76641; 77061; 77065; G0279

== ENCOUNTER 2023-11-28 10:58 | Emergency (ER) | payer BC, SELFPAY ==
[2023-11-28 11:25] VITALS: BP 149/71; PULSE 115; RESP 20; TEMP 36.9; O2SAT 95; BMI 28.4
--- NOTE | 2023-11-28 11:39 | EXP.UTC ---
Discharge Plan Disposition Patient Disposition: Home, Self-Care Condition: Good Prescriptions Prescriptions: No Action trazodone 100 mg tablet 100 mg PO DAILY pantoprazole 40 mg tablet,delayed release (DR/EC) 40 mg PO DAILY Referrals Follow up/Referrals: Aura Stapleton [Primary Care Provider] - See instructions Activity Restrictions/Add. Instructions Additional Instructions/Restrictions: *Monitor Temp, Over the counter Motrin or Tylenol as directed/as needed Tylenol every 4 hours and Motrin every 6 hours (as long as your family doctor has told you that you can take it) for fever or pain. and straight to ER if unable to lower temp less than 101.0 after medication given *Warm salt water gargles may help to soothe the throat *Throat Lozenges? *Warm fluids like tea with honey may help to soothe the throat? *Sleep elevated *Humidifier/Vaporizer Your throat swab was sent for culture. Those results are typically sent to your primary care. Be sure to follow up in 2-3 days with your family doctor/primary care physician if no improvement so they can review those result and treat if necessary. If you don?t have a primary care doctor, I recommend you get one but in the mean time, you will have to return to a walk in clinic Follow up IMMEDIATELY for new or worsening symptoms or no Noticeable improvement over the next 48-72 hours. 911 for difficulty breathing or swallowing You were tested for today for COVID19 your test result should be back in the next 24hours, you may check your results on the [facility] [employer] Health Portal Clinical Impressions Clinical Impression: Viral syndrome Stand Alone Forms Stand Alone Forms: Work/School Release Instructions Patient Instructions: DI for Fever (Symptom) -- Adult, Sore Throat Print Language Print Language: Ukrainian Discharge ED Provider: Madison Thompson [facility] [place] HPI General Stated complaint: body ache congestion fever cough diarrhea st Time Seen by Provider: 11/28/23 11:39 History of Present Illness Provider Complaint: Patient states that she started feeling bad yesterday with fever, chills, body aches, and diarrhea states this morning she woke up and was still having fever and not feeling well so she came in to get checked worried she may have flu or something Related Data Home Medications ?Medication ?Instructions ?Recorded ?Confirmed pantoprazole 40 mg tablet,delayed 40 mg PO DAILY 11/28/23 11/28/23 release trazodone 100 mg tablet 100 mg PO DAILY 11/28/23 11/28/23 Allergies Allergy/AdvReac Type Severity Reaction Status Date / Time amoxicillin [AMOXICILLIN] Allergy Unknown Verified 06/09/22 14:01 cefaclor [CEFACLOR] Allergy Unknown Verified 06/09/22 14:01 cephalexin [CEPHALEXIN] Allergy Unknown Verified 06/09/22 14:01 oxycodone [OXYCODONE] Allergy Unknown Verified 06/09/22 14:01 Penicillins [PENICILLINS] Allergy Unknown Verified 06/09/22 14:01 povidone-iodine Allergy Unknown Verified 06/09/22 14:01 [From BETADINE] Sulfa (Sulfonamide Allergy Unknown Verified 06/09/22 14:01 Antibiotics) [SULFA (SULFONAMIDE ANTIBIOTICS)] sumatriptan [SUMATRIPTAN] Allergy Unknown Verified 06/09/22 14:01 [facility] Disclaimer: The information contained in this section may have been updated after the patient was seen, as this information can be updated by other users. Medical History (Updated 11/28/23 @ 11:55 by Madison Thompson APRN) History of anemia Urinary tract infection History of gastroesophageal reflux (GERD) Migraine Asthma Social History Smoking Status: Never smoker alcohol intake: never current occupational status: other Travel in the last 8 weeks: None ROS Obtained: Yes All systems reviewed & no additional complaints except as documented and Yes Systems reviewed as appropriate & no additional complaints except as documented Constitutional Constitutional: Reports system reviewed and no additional complaints, except as documented, Reports as per HPI, Reports body ache, Reports chills, Reports fever(s) and Reports headache(s) ENT Ears, Nose, Mouth, and Throat: Reports system reviewed and no additional complaints, except as documented, Reports as per HPI, Reports headache(s), Reports nasal congestion and Reports sore throat Cardiovascular Cardiovascular: Reports system reviewed and no additional complaints, except as documented and Reports as per HPI Respiratory Respiratory: Reports system reviewed and no additional complaints, except as documented and Reports as per HPI Gastrointestinal Gastrointestingal: Reports system reviewed and no additional complaints, except as documented, as per HPI and diarrhea Neurologic Neurologic: Reports headache(s) Physical Exam General General appearance: alert and in no apparent distress ENT ENT exam: Present mucous membranes moist Expanded ENT Exam Nose exam: Absent sinus tenderness Throat exam: Present other (Pharyngeal erythema noted) Respiratory Respiratory exam: Present normal lung sounds bilaterally; Absent respiratory distress or wheezes Cardiovascular Cardiovascular exam: Present regular rate, normal rhythm and normal heart sounds Abdominal Exam Abdominal exam: Present soft and normal bowel sounds; Absent distention or tenderness Neurological Exam Neurological exam: Present alert, oriented X3 and normal gait Medical Decision Making Medical Records Screening: Per USPSTF and CDC recommendations, given the prevalence of disease in our region, it is our hospital?s policy to screen for HIV and viral Hepatitis for all patients aged 18 and over and those with ongoing risk factors. Albino Inquiry Pt receiving controlled substance: No Albino was queried for this patient: No Lab Data Lab results reviewed: Yes I reviewed the patient's lab results.
[2023-11-28 11:56] LABS: UTC Influenza A Antigen Negative (Negative); UTC Strep Screen (Rapid) Negative (Negative)
[2023-11-28 11:57] LABS: UTC Influenza B Antigen Negative (Negative)
[2023-11-28 12:03] VITALS: BP 149/71; PULSE 115; RESP 20; TEMP 36.9; O2SAT 95
== END 2023-11-28 12:06 | disposition home or self-care (01) ==
PROVIDERS: Emergency Provider Nurse Practitioner; PCP Nurse Practitioner Family
DX: B34.9 Viral infection, unspecified (principal)
CPT/HCPCS: 87635; 87804; 87880; 99213; G0381

== ENCOUNTER 2024-11-19 11:55 | Outpatient (CLI) | payer BC, SELFPAY ==
--- OUTSIDE RECORDS SUMMARY | 2024-11-20 11:56 | XMS_ITS | Clinical Summary ---
Author Organization [facility] Address [address] [place] [address] Care Team Providers Care Craft Recruiter Name Role Phone Aura Stapleton CHETAN Primary Care Provider [phone] Allergies Active Allergy Reactions Criticality Noted Date Comments Cefaclor Rash Low 01/04/2016 Cephalexin Rash Low 10/30/2018 Penicillins Rash Low 01/04/2016 Medications PARoxetine (PAXIL) 20 MG tablet 10/24/2018 Active Topiramate (TOPAMAX PO) Take by mouth. Active Active Problems No known active problems Family History Medical History Relation Name Comments Cancer Father Lung disease Father Cirrhosis Mother Relation Name Status Comments Father (Age 70) Mother (Age 29) Social History Tobacco Use Types Packs/Day Years Used Date Smoking Tobacco: Never Abuse Screen Answer Date Recorded Unsafe at Home or Work/School Not on file Feels Threatened by Someone? Not on file 10/2022 Does Anyone Keep You from Co ntacting Others or Doint Things Outside the Home? Not on file 11/23/2022 Physical Sign of Abuse Present Not on file 1 Housing Stability Answer Date Recorded Current Living Arrangements Not on file 10/2022 Potentially Unsafe Housing Conditions Not on myron e 11/23/2022 Family and Community Support Answer Vincenzo e Recorded Help with Day-to-Day Activities Not on file 11/23/2022 Lonely or Isolated Not on file 11/23/2022 Employment Answer Date Recorded Do you want help finding or keeping work or a olegario b? Not on file 11/23/2022 Disabilities Answer Date Recorded Concentrating, Remembering, or Making Decisions Difficulty Not on file 11/23/2022 Doing Errands Independently Difficulty Not on fi le 11/23/2022 Education Answer Date Recorded Help with school or training? Not on file Preferred Language Not on file 11/23/2022 Comments No Sex and Gender Information Value Date Recorded Sex Assigned at Not on file Legal Sex Female 11:02 AM EDT Gender Identity Not on file Sexual Orientation Not on file Last Filed Vital Signs Vital Sign Reading Time Taken Comments Blood Pressure - - Pulse 83 10/30/2018 3:12 PM EDT Temperature 36.3 C (97.3 F) 10/30/2018 3:12 PM EDT Respiratory Rate 15 10/30/2018 3:12 PM EDT Oxygen Saturation 99% 10/30/2018 3:12 PM EDT Inhaled Oxygen Concentration - - Weight 81.6 kg (180 lb) 10/30/2018 3:12 PM EDT Height 160 cm (5' 3 ) 10/30/2018 3:12 PM EDT Body Mass Index 31.89 10/30/2018 3:12 PM EDT Plan of Treatment Health Maintenance Due Date Last Done Comments Annual Gynecologic Pelvic and Breast Exam 1971 TDAP/TD VACCINES (1 - Tdap) 07/09/1990 MAMMOGRAM 2011 COLOGUARD 07/09/2016 COLON CANCER SCREENING 5 YEAR SIGMOIDOSCOPY 07/09/2016 COLONOSCOPY 07/09/2016 COLORECTAL CANCER SCREENING 07/09/2016 CT COLONOGRAPHY 07/09/2016 FECAL OCCULT BLOOD TEST 07/09/2016 FIT Testing (1 year) 07/09/2016 ANNUAL PHYSICAL 10/30/2018 HEPATITIS C SCREENING 10/30/2018 Pneumococcal Vaccine 50+ (1 of 1 - PCV) 07/09/2021 ZOSTER VACCINE (1 of 2) 07/09/2021 INFLUENZA VACCINE 09/15/[address] [address] [place] [address] PPO Care Teams Craft Recruiter Relationship Specialty Start Date End Date Aura Stapleton APRN [address] [place] [address] PCP - General Nurse Practitioner 10/30/18
--- OUTSIDE RECORDS SUMMARY | 2024-11-20 11:57 | XMS_ITS | Data Portability ---
Author Organization [employer] [facility] Address [address] [place] [address] Care Team Providers Care Microelectronics Engineer Name Role Phone SHYANN STAPLETON Primary Care Provider [phone] Assessment Encounter Date Assessment Date Assessment LastModified by Organization Details LastModified Time 01/25/2024 01/25/2024 Patient presents with symptoms of UTI. Results of dipstick were positive for UTI. Advised to drink clear fluids, Tylenol for pain and take prescribed medications as instructed. Patient encouraged to follow up within 1 week if not improving. Not available 01/25/2024 10:05:35 07/14/2024 07/14/2024 Patient instructed to call software engineering specialist and schedule follow up. US to r/o DVT given history and pain. Treatment per plan below for sinusitis and knee pain. No new trauma. Follow up with PCP and as needed [email or web address] Not available 07/17/2024 11:07:21 Plan of Treatment Reminders Order Date Submit Date Provider Last Modified By Organization Details Last Modified Time Details Appointments None recorded. Lab urinalysis, dipstick 2023 024 [facility], [address] [place] [address], [address], 10:13:13 Referral orthopedic surgeon referral - first available appt; Needs knee injection for OA 2024 025 ROSANNE [facility], [address] [place] [address], [address], 5 13:28:21 Procedures None recorded. Surgeries None recorded. Imaging US, duplex, venous, lower extremity, unilateral [address], [address] [facility], [place], [address], 5 14:17:33 XR, shoulder, 2 or more view [address], [address], 5 11:16:06 XR, humerus, 2 or more view [address], [address], 5 11:16:06 XR, elbow, 2 view [address], [address], 5 11:16:05 XR, knee, 3 view [address], [address], 5 11:16:05 XR, chest, 2 view [address], [address], 4 15:24:09 Medication Orders prednisone 10 mg tablets in a dose pack 2024 025 [facility], [address] [place] [address], [address], 5 12:59:43 doxycycline monohydrate 100 mg capsule 2024 025 [facility], [address] [place] [address], [address], 5 12:59:41 prednisone 20 mg tablet 2024 025 [facility], [address] [place] [address], [address], 5 12:04:10 azithromyci n 250 mg tablet 2024 025 [facility], [address] [place] [address], [address], 5 12:04:11 Bromfed DM 2 mg-30 mg-10 mg/5 mL oral syrup 2024 025 [facility], [address] [place] [address], [address], 5 12:14:20 Pyridium 100 mg tablet 2023 025 [facility], [address] [place] [address], [address], 5 11:30:59 Macrobid 100 mg capsule 2023 025 [facility], [address] [place] [address], [address], 5 11:31:00 prednisone 20 mg tablet 2023 024 [email or web address], [address] [place] [address], [address], 5 11:55:55 doxycycline monohydrate 100 mg tablet 2023 024 [facility], [address] [place] [address], [address], 4 10:04:54 Airsupra 90 mcg-80 mcg/actuati on HFA aerosol inhaler 2023 024 [facility], [address] [place] [address], [address], 16:58:16 Patient TargetsNo targets recorded. Patient Instructions Encounter Date Encounter Id Patient Instructions Last Modified By Organization Details Last Modified Time 01/25/2024 [id number] learning about healthy weight Not available 01/25/2024 10:13:13 Learning About Being Physically Active Not available 01/25/2024 10:13:13 Take medication as prescribed. Increase fluids. Wipe from front to back. Void after intercourse. Do not hold urine. Urinate often. Take Tylenol/Motrin as needed for pain/fever. If symptoms persist or worsen call the clinic. Not available 01/25/2024 10:07:21 Plan of care discussed with patient who voiced understanding. Not available 01/25/2024 10:07:31 06/22/2024 [id number] learning about healthy weight Not available 06/22/2024 11:18:32 Learning About Being Physically Active Not available 06/22/2024 11:18:32 Take medication as prescribed. Increase fluids and rest. Use humidifier at bedside. If symptoms persist or worsen call the clinic. Not available 06/22/2024 11:16:27 Plan of care discussed with patient/guardian who voiced understanding. Not available 06/22/2024 11:16:31 Reason for Referral Orthopedic Surgeon Referral for Osteoarthritis of knee first available appt; Needs knee injection for OA Referring Physician: Shyann Stapleton, Family Medicine, Encounter Date: 05/01/2024 Results Created Date Observation Date Name Description Value Unit Range Abnormal Flag Note LastModifiedBy Organization Detail LastModifiedTime 09/03/19 24 09/03/2023 rapid SARS CoV 2 Ag, QL, IA, upper respi rator y speci men SARS CoV Ag negati ve Not Available [address] [facility], [place], [address], 09/03/2023 11:36:35 09/03/19 24 09/03/2023 rapid flu (A+B) Flu A negati ve Not Available [address], [place], [address], 09/03/2023 11:36:34 09/03/19 24 09/03/2023 rapid flu (A+B) Flu B negati ve Not Available [address], [place], [address], 09/03/2023 11:36:34 01/25/20 24 01/25/2024 urina lysis , dipst ick Leukocytes Large Not Available [address], [address], 01/25/2024 09:56:54 01/25/20 24 01/25/2024 urina lysis , dipst ick Nitrite negati ve Not Available [address], [address], 01/25/2024 09:56:54 01/25/20 24 01/25/2024 urina lysis , dipst ick Urobilinogen .2 Not Available [address], [address], 01/25/2024 09:56:54 01/25/20 24 01/25/2024 urina lysis , dipst ick Protein Negati ve Not Available [address], [address], 01/25/2024 09:56:54 01/25/20 24 01/25/2024 urina lysis , dipst ick pH 5.0 Not Available [address], [address], 01/25/2024 09:56:54 01/25/2001/25/2024 urina lysis , dipst ick Blood Non-He molyze d: Trace Not Available [address], [place], [address], 01/25/2024 09:56:54 01/25/2001/25/2024 urina lysis , dipst ick Specific [place] 1.025 Not Available [address], [place], [address], 01/25/2024 09:56:54 01/25/2001/25/2024 urina lysis , dipst ick Ketone Negati ve Not Available [address], [place], [address], 01/25/2024 09:56:54 01/25/2001/25/2024 urina lysis , dipst ick Bilirubin Negati ve Not Available [address], [place], [address], 01/25/2024 09:56:54 01/25/2001/25/2024 urina lysis , dipst ick Glucose Negati ve Not Available [address], [place], [address], 01/25/2024 09:56:54 01/25/2001/25/2024 urina lysis , dipst ick Appearance Slight ly Cloudy Not Available [address], [place], [address], 01/25/2024 09:56:54 01/25/2001/25/2024 urina lysis , dipst ick Color Dark Yellow Not Available [address], [place], [address], 01/25/2024 09:56:54 09/13/19 24 XR, chest , 2 view No observ ation record ed. [address], [address], 09/14/2023 09:15:15 09/16/19 24 09/14/2023 MAMMO , scree laura, digit al, bilat eral No observ ation record ed. [address] (Scheduling) [address], [place], [address], 09/20/2023 15:49:33 09/30/19 24 09/27/2023 MAMMO , diagn ostic , digit al, unila teral No observ ation record ed. [address] (Scheduling) [address], [place], [place], [address], 10/04/2023 16:55:59 09/30/19 24 09/27/2023 US, breas t, unila teral No observ ation record ed. [address], [place], [place], [address], 10/04/2023 16:54:16 05/02/19 25 XR, knee, 3 view No observ ation record ed. [address], [address], 05/01/2024 16:44:50 05/02/19 25 XR, elbow , 2 view No observ ation record ed. [address], [address], 05/01/2024 16:44:50 05/02/19 25 XR, humer us, 2 or more view No observ ation record ed. [address], [address], 05/01/2024 16:44:51 05/02/19 25 XR, shoul deangelo, 2 or more view No observ ation record ed. [email or web address] [address] [place], [place], [address], 05/01/2024 16:44:51 07/15/19 25 US, duple x, venou s, lower extre mity, unila teral No observ ation record ed. [email or web address] [facility] [address] [facility], [place], [address], 07/14/2024 17:23:42 Result Notes None recorded. Problems Name Problem SNOMED Code Status Onset Date Resolution Date Notes Provider Name and Address Organization Details Recorded Time Moderate major depressi on, single episode 84041415 Completed 201511/18/2020 Problem Code: F32.1; Problem Code Type: ICD-10; Not Available [facility] 2 22:36:26 Depressi ve disorder 80341672 Completed 201509/20/2020 Problem Code: 311; Problem Code Type: ICD-9; Not Available [facility] 22:36:33 Vitamin B deficien cy 47907792 Completed 201512/18/2019 Problem Code: E53.9; Problem Code Type: ICD-10; Not Available [facility] 2 22:36:25 Vitamin D deficien cy 14991533 Completed 201512/18/2019 Problem Code: E55.9; Problem Code Type: ICD-10; Not Available [facility] 22:36:25 Dysthymi a 19688664 Completed 201512/18/2019 Problem Code: R53.81; Problem Code Type: ICD-10; Not Available [facility] 2 22:36:28 Malaise and fatigue 593864131 Completed 201509/20/2020 Problem Code: 780.79; Problem Code Type: ICD-9; Not Available [facility] 2 22:36:34 Vitamin D deficien cy 56257710 Completed 201612/18/2019 Problem Code: E55.9; Problem Code Type: ICD-10; Not Available [facility] 2 22:36:26 Acute maxillar y sinusiti s 44398582 Completed 201607/19/2016 Problem Code: J01.00; Problem Code Type: ICD-10; Maylin Hernandez, KEYANA [address] [place], [address] , [employer] 5 12:22:15 Cough 66698020 Completed 201606/03/2016 Problem Code: R05; Problem Code Type: ICD-10; Shyann Stapleton, SQL DATABASE ADMINISTRATOR [address] [place] [address], [address] , [employer] 5 11:18:10 Internal hemorrho ids grade I 657887932 Completed 201612/18/2019 Problem Code: K64.0; Problem Code Type: ICD-10; Not Available [facility] 2 22:36:27 Disorder of digestiv e system 36578737 Completed 201608/30/2016 Problem Code: K92.89; Problem Code Type: ICD-10; Not Available [facility] 2 22:36:28 Multiple injuries 607671198 Completed 201608/30/2016 Problem Code: T07; Problem Code Type: ICD-10; Not Available [facility] 2 22:36:29 External hemorrho ids 10359090 Completed 201609/20/2020 Problem Code: 455.3; Problem Code Type: ICD-9; Not Available [facility] 2 22:36:34 Hematoch ezia 662920903 Completed 201608/30/2016 Problem Code: 578.1; Problem Code Type: ICD-9; Not Available [facility] 2 22:36:34 Blisters of multiple sites 573327835 Completed 201608/30/2016 Problem Code: 919.2; Problem Code Type: ICD-9; Not Available [facility] 22:36:36 Eruption 286058769 Completed 201610/30/2016 Problem Code: R21; Problem Code Type: ICD-10; Not Available [facility] 22:36:28 Acute sinusiti s 53974093 Completed 201612/29/2016 Problem Code: J01.90; Problem Code Type: ICD-10; BABS JESSEMICHEAL mcnair, [employer] 10:56:51 Influenz a with respirat ory manifest ation other than pneumoni a Completed 201603/26/2017 Problem Code: 487.1; Problem Code Type: ICD-9; Not Available [facility] 22:36:34 Gastroes ophageal reflux disease without esophagi tis 096249532 Active 2017 Not Available [facility] 22:36:27 Screenin g mammogra phy Completed 201703/06/2018 Problem Code: Z12.31; Problem Code Type: ICD-10; BABS JESSEMICHEAL null, [employer] 10:56:51 Gastroes ophageal reflux disease 105592661 Completed 201709/20/2020 Problem Code: 530.81; Problem Code Type: ICD-9; Not Available [facility] 22:36:36 Body mass index 30+ - obesity 406365349 Completed 201709/20/2020 Problem Code: V85.32; Problem Code Type: ICD-9; Not Available [facility] 22:36:35 Acute sinusiti s 21086276 Completed 201812/18/2019 Problem Code: J01; Problem Code Type: ICD-10; BABS JESSEMICHEAL null, [employer] 10:56:51 Diffuse otitis externa 91748973 Completed 201812/18/2019 Problem Code: H60.311; Problem Code Type: ICD-10; Not Available [facility] 2 22:36:26 Acute sinusiti s 59623877 Completed 201812/18/2019 Problem Code: J01.90; Problem Code Type: ICD-10; BABS MOLINAAUDREYEsmer mcnair, [employer] 2 10:56:51 Bronchop neumonia 650129478 Completed 201812/29/2021 Problem Code: J18.0; Problem Code Type: ICD-10; BABS MOLINAAUDREYEsmer null, [employer] 10:56:51 Acute pansinus itis 4311300 Completed 201912/18/2019 Problem Code: J01.40; Problem Code Type: ICD-10; Not Available [facility] 22:36:26 Acute sinusiti s 17596373 Completed 201912/18/2019 Problem Code: J01.90; Problem Code Type: ICD-10; BABS MOLINAMICHEAL null, [employer] 10:56:51 Cough 92637576 Completed 201912/18/2019 Problem Code: R05; Problem Code Type: ICD-10; Shyann Stapleton, CHETAN [address] [place] [address], [address] , [employer] 5 11:18:10 Medical examinat ion for suspecte d conditio n Completed 201912/29/2021 Problem Code: Z03.89; Problem Code Type: ICD-10; BABS MOLINAMICHEAL null, [employer] 10:56:51 Examinat ion for suspecte d tubercul osis Completed 201905/24/2019 Problem Code: V71.2; Problem Code Type: ICD-9; Not Available [facility] 22:36:35 General examinat ion of patient Completed 201909/20/2020 Not Available [facility] 22:36:29 Screenin g mammogra phy Completed 201912/29/2021 Problem Code: Z12.31; Problem Code Type: ICD-10; BABS mcnair, [employer] 2 10:56:51 Influenz a vaccine needed 48747129109 06 Completed 201912/29/2021 Problem Code: Z23; Problem Code Type: ICD-10; BABS MOLINAMICHEAL mcnair, [employer] 2 10:56:51 Body mass index 30+ - obesity 722457998 Completed 201909/20/2020 Problem Code: Z68.34; Problem Code Type: ICD-10; Not Available [facility] 22:36:32 Sampling of vagina for Papanico laou smear Completed 201912/29/2021 Problem Code: Z01.419; Problem Code Type: ICD-10; BABS MOLINAMICHEAL null, [employer] 2 10:56:51 Left side sciatica 63263301178 9104 Completed 201906/13/2020 Problem Code: M54.32; Problem Code Type: ICD-10; Not Available [facility] 22:36:28 Suprapub ic pain 122992585 Completed 201906/13/2020 Not Available [facility] 22:36:28 Acute suppurat elvia otitis media 836836260 Completed 202012/29/2021 BABS MOLINAMICHEAL null, [employer] 2 10:56:51 Disorder of upper respirat ory system 398536729 Completed 202006/13/2020 Problem Code: J06.9; Problem Code Type: ICD-10; Shyann Stapleton APRN [address] [place] [address], [address] , [employer] 5 11:18:02 Acute sinusiti s 64223296 Completed 202009/20/2020 Problem Code: J01.90; Problem Code Type: ICD-10; BABSADRIAN mcnair, [employer] 2 10:56:51 Allergic rhinitis caused by pollen 41551737 Active 2020 Problem Code: J30.1; Problem Code Type: ICD-10; Not Available [facility] 2 22:36:27 Acute sinusiti s 15855708 Completed 202011/18/2020 Problem Code: J01.90; Problem Code Type: ICD-10; BABS mcnair, [employer] 2 10:56:51 History and physical examinat ion, pre-empl oyment Completed 202001/03/2021 Problem Code: Z02.1; Problem Code Type: ICD-10; Not Available [facility] 22:36:29 Finding of Mantoux test 755415814 Completed 202001/03/2021 Problem Code: Z11.1; Problem Code Type: ICD-10; Not Available [facility] 2 22:36:30 Screenin g mammogra phy Completed 202001/03/2021 Problem Code: Z12.31; Problem Code Type: ICD-10; BABS mcnair, [employer] 2 10:56:51 Influenz a vaccine needed 02123063050 06 Completed 202001/03/2021 Problem Code: Z23; Problem Code Type: ICD-10; BABS mcnair, [employer] 2 10:56:51 Body mass index 25-29 - overweig ht 573937652 Completed 202001/03/2021 Problem Code: Z68.29; Problem Code Type: ICD-10; Not Available [facility] 22:36:32 Eustachi an tube disorder 60935307 Active 2020 Problem Code: H69.91; Problem Code Type: ICD-10; Not Available [facility] 22:36:26 COVID-19 633672406 Completed 202112/29/2021 Problem Code: U07.1; Problem Code Type: ICD-10; BABS COURTNEY null, [employer] 2 10:56:51 Acute sinusiti s 64513327 Completed 202112/29/2021 Problem Code: J01.90; Problem Code Type: ICD-10; BABS MOLINANEAEsmer null, [employer] 2 10:56:51 Chronic sinusiti s 19599580 Active 2022 ALEK EscobarP [address] [place], [address] , [employer] 3 10:35:19 Pain of knee region 8572929773 Active 2024 Maylin Hernandez NP [address] [place] [address], [address] , [employer] 5 12:21:21 Acute maxillar y sinusiti s 74425153 Active 2024 Maylin Hernandez NP [address] [place], [address] , [employer] 5 12:22:15 Pain of left calf 68750146907 35457 Active 2024 Maylin eHrnandez NP [address] [place], [address] , [employer] 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 Procedures Surgical History Date Name Laterality Status Provider Name and Address Organization Details Recorded Time 4 Most Recent Mammogram completed BABS ROZ [employer] 05/01/2024 11:02:31 0 Date of Last Pap Smear completed SHELTON NICHOLS [employer] 03/24/2022 16:11:42 Imaging Results None recorded. Procedure Notes None recorded. Medical Equipment None Reported. Allergies Allergen ID Allergen Name Allergen Category Reaction Reaction Severity Criticality Documentation Date Start Date Code Code System Note Provider Name and Address Organization Details Recorded Time 52826 Product containin g penicilli n (product) medicatio n Not available Not available Not available 10/21/2021 22254 8001 SNOMED [place] Sandra mcnair [employer] 3 09:24:15 32610 Keflex medicatio n Not available Not available Not available 10/21/2021 7 RxNorm Not Available [facility] 2 22:56:57 09452 Ceclor medicatio n Not available Not available Not available 10/21/2021 5 RxNorm Not Available [facility] 2 22:56:57 Medications Name Sig Start Date Stop Date Status Note LastModified by Organization Details LastModified Time cyclobenzap rine 10 mg tablet TAKE ONE TABLET BY MOUTH EVERY DAY AT BEDTIME active Not Available Not Available No t Available Augmentin 875 mg-125 mg tablet take 1 tablet by oral route every 12 hours for 10 days 06/30 completed Not Available Not Available Not Available promethazin e-DM 6.25 mg-15 mg/5 mL oral syrup take 5 millilite rs by oral route every 4 hours as needed, not to exceed 30 mL in 24 hours 03/24 completed Not Available Not Available Not Available nystatin 100,000 unit/mL oral suspension take 5 millilite rs by oral route 4 times per day 03/25 completed Not Available Not Available Not Available prednisone 10 mg tablet Take 1 tablet twice a day by oral route for 5 days. 12/22 completed Not Available Not Available Not Available doxycycline hyclate 100 mg capsule take 1 capsule (100 mg) by oral route 2 times per day x 7 days 04/20 completed Not Available Not Available Not Available paroxetine 10 mg tablet take 1 tablet (10 mg) by oral route once daily 11/18 completed Not Available Not Available Not Available ipratropium 0.5 mg-albutero l 3 mg (2.5 mg base)/3 mL nebulizatio n soln inhale 3 millilite rs by nebulizat ion route 4 times per day 03/25 completed Not Available Not Available Not Available clindamycin HCl 300 mg capsule take 1 capsule (300 mg) by oral route 2 times per day for 7 days 08/21 completed Not Available Not Available Not Available azithromyci n 250 mg tablet TAKE 2 TABLETS BY MOUTH ON DAY 1, THEN TAKE 1 TABLET DAILY ON DAYS 2-5 07/14 completed Not Available Not Available Not Available ibuprofen 800 mg tablet 09/12 completed Not Available Not Available Not Available citalopram 10 mg tablet Take 1 tab po q am 03/18 completed Not Available Not Available Not Available promethazin e 12.5 mg tablet Take 1 tablet every 8 hours by oral route as needed. 08/21 completed Not Available Not Available Not Available Medrol (Roger) 4 mg tablets in a dose pack take by oral route as directed per package instructi ons 12/29 completed Not Available Not Available Not Available Aplisol 5 tub. unit/0.1 mL intradermal injection solution Inject 0.1 mL by intraderm al route. 12/22 completed Not Available Not Available Not Available prednisone 20 mg tablet TAKE ONE TABLET BY MOUTH EVERY DAY with a MEAL FOR SEVEN DAYS 07/14 completed Not Available Not Available Not Available prednisone 5 mg tablet 10 pills po today and decrease by one pill each day 06/05 completed Not Available Not Available Not Available Pyridium 100 mg tablet Take 1 tablet 3 times a day by oral route for 2 days. 05/01 completed Not Available Not Available Not Available clobetasol 0.05 % topical cream apply a thin layer to the affected area(s) by topical route 2 times per day 09/12 completed Not Available Not Available Not Available clindamycin HCl 150 mg capsule 08/21 completed Not Available Not Available Not Available Zyrtec 10 mg tablet take 1 tablet (10 mg) by oral route once daily 2020 active Not Available Not Available Not Avai lable dextrometho rphan-guaif enesin 10 mg-100 mg/5 mL oral syrup take 5 millilite rs by oral route every 4 hours as needed 03/25 completed Not Available Not Available Not Available omeprazole 40 mg capsule,del ayed release Take 1 capsule(s ) by mouth daily 01/05 completed Not Available Not Available Not Available doxycycline monohydrate 100 mg tablet Take 1 tablet twice a day by oral route with meal(s) for 10 days. 01/24 completed Not Available Not Available Not Available prednisone 10 mg tablets in a dose pack take BY MOUTH as directed active Not Available Not Available No t Available Celebrex 200 mg capsule take 1 capsule (200 mg) by oral route once daily 11/18 completed Not Available Not Available Not Available meloxicam 7.5 mg tablet TAKE ONE TABLET BY MOUTH DAILY active Not Available Not Available No t Available Zofran 4 mg tablet take 1 tablet (4 mg) by oral route 4every 6 hours prn N/V 05/03 completed Not Available Not Available Not Available oxycodone-a cetaminophe n 5 mg-325 mg tablet 07/30 completed Not Available Not Available Not Available Fleet Enema 19 gram-7 gram/118 mL Insert 118 mL by rectal route as directed. 08/21 completed Not Available Not Available Not Available trazodone 100 mg tablet TAKE 1 TABLET AT BEDTIME ASNEEDED FOR INSOMNIA 2024 active Not Available Not Available Not Avai lable Celexa 20 mg tablet Take 1 tablet(s) by mouth daily 03/25 completed Not Available Not Available Not Available benzonatate 100 mg capsule take 1 capsule (100 mg) by oral route 3 times per day 03/24 completed Not Available Not Available Not Available doxycycline monohydrate 100 mg capsule TAKE ONE CAPSULE BY MOUTH TWICE DAILY EVERY DAY FOR SEVEN DAYS active Not Available Not Available No t Available paroxetine 20 mg tablet TAKE 1 TABLET DAILY 12/11 completed Not Available Not Available Not Available pantoprazol e 40 mg tablet,finesse yed release TAKE 1 TABLET DAILY 2024 active Not Available Not Available Not Avai lable oseltamivir 75 mg capsule Take 1 capsule twice a day by oral route for 5 days. 03/24 completed Not Available Not Available Not Available Cipro 500 mg tablet take 1 tablet (500 mg) by oral route 2 times per day x 7 days 05/03 completed Not Available Not Available Not Available ranitidine 150 mg tablet Take 1 daily po bid 03/25 completed Not Available Not Available Not Available magnesium citrate oral solution Drink one full buttle now for constipat ion 08/21 completed Not Available Not Available Not Available Levaquin 500 mg tablet take 1 tablet (500 mg) by oral route every 24 hours 03/25 completed Not Available Not Available Not Available ibuprofen 600 mg tablet 03/24 completed Not Available Not Available Not Available Anusol-HC 25 mg rectal suppository Insert 1 supposito ry(s) rectally am and pm 10/29 completed Not Available Not Available Not Available levofloxaci n 750 mg tablet Take 1 tablet every day by oral route for 7 days. 12/22 completed Not Available Not Available Not Available albuterol sulfate HFA 90 mcg/actuati on aerosol inhaler inhale 1 - 2 puffs (90 - 180 mcg) by inhalatio n route every 4 hours as needed 03/25 completed Not Available Not Available Not Available Vitamin D2 1,250 mcg (50,000 unit) capsule Take 1 capsule(s ) by mouth weekly. 05/20 completed Not Available Not Available Not Available bromphenira mine-pseudo ephedrine-D M 2 mg-30 mg-10 mg/5 mL oral syrup take 10 ML BY MOUTH every SIX hours NEEDED 07/14 completed Not Available Not Available Not Available ondansetron 4 mg disintegrat ing tablet 03/24 completed Not Available Not Available Not Available doxycycline hyclate 100 mg tablet Take 1 tablet twice a day by oral route for 10 days. 12/22 completed Not Available Not Available Not Available dicyclomine 10 mg capsule take 1 capsule (10 mg) by oral route 3 times per day prn abd pain 05/03 completed Not Available Not Available Not Available Bactrim DS 800 mg-160 mg tablet take 1 tablet by oral route 2 times per day 02/01 completed Not Available Not Available Not Available Ciprodex 0.3 %-0.1 % ear drops,suspe nsion instill 4 drops into affected ear(s) by otic route 2 times per day for 7 days 02/01 completed Not Available Not Available Not Available nitrofurant oin monohydrate /macrocryst als 100 mg capsule Take 1 capsule every 12 hours by oral route for 5 days. 05/01 completed Not Available Not Available Not Available lactulose 10 gram/15 mL oral solution 08/21 completed Not Available Not Available Not Available Symbicort 160 mcg-4.5 mcg/actuati on HFA aerosol inhaler Inhale 2 puffs twice a day by inhalatio n route. active Not Available Not Available No t Available Xyzal 5 mg tablet Take 1 tablet(s) by mouth each evening 03/25 completed Not Available Not Available Not Available Probiotic 10 billion cell capsule Take 1 cap by oral route daily for 30 days 05/03 completed Not Available Not Available Not Available lactulose 10 gram/15 mL (15 mL) oral solution Take 15 mL every day by oral route as needed. 08/21 completed Not Available Not Available Not Available Flonase Allergy Relief 50 mcg/actuati on nasal spray,suspe nsion Use 1 spray(s) in each nostril daily 01/05 completed Not Available Not Available Not Available Flonase Allergy Relief active Not Available Not Available Not Available Airsupra 90 mcg-80 mcg/actuati on HFA aerosol inhaler Inhale 2 inhalatio ns as needed by inhalatio n route. may use up to 12 puffs daily. active Not Available Not Available No t Available Vitals Date Recorded Body height Body mass index (BMI) Body weight Body temperature Heart rate Oxygen saturation Oxygen saturation in Arterial blood by Pulse oximetry Systolic And Diastolic Provider Name and Address Organization Details Last Updated DateTime 5 162.56 cm 28.5 kg/m2 05255.6 1 g 98 [degF] 100 /min 99 % 99 % 123/77 mm[Hg] BABS MOLINAMICHEAL [employer] 5 11:01:58 Date Recorded Body height Body temperature Heart rate Oxygen saturation Oxygen saturation in Arterial blood by Pulse oximetry Body mass index (BMI) Body weight Systolic And Diastolic Provider Name and Address Organization Details Last Updated DateTime 5 162.56 cm 98.3 [degF] 109 /min 98 % 98 % 28.3 kg/m2 78483.7 4 g 118/72 mm[Hg] Maria Fierro, [employer] DAT[employer] ADMINISTRATOR [address] [place], [address], [employer] 5 11:08:16 Date Recorded Body height Body mass index (BMI) Body weight Body temperature Heart rate Oxygen saturation Oxygen saturation in Arterial blood by Pulse oximetry Systolic And Diastolic Provider Name and Address Organization Details Last Updated DateTime 5 162.56 cm 29.1 kg/m2 85050.9 1 g 98.4 [degF] 99 /min 97 % 97 % 133/80 mm[Hg] Jamaicalinda Alarcon [employer] 5 11:55:39 Date Recorded Body height Body mass index (BMI) Body weight Body temperature Heart rate Oxygen saturation Oxygen saturation in Arterial blood by Pulse oximetry Systolic And Diastolic Provider Name and Address Organization Details Last Updated DateTime 4 162.56 cm 28.9 kg/m2 90262.2 4 g 98.4 [degF] 107 /min 94 % 94 % 124/84 mm[Hg] Elinor Jiménez [employer] 4 10:50:21 Date Recorded Body height Body mass index (BMI) Body weight Body temperature Heart rate Oxygen saturation Oxygen saturation in Arterial blood by Pulse oximetry Systolic And Diastolic Provider Name and Address Organization Details Last Updated DateTime 4 162.56 cm 28.2 kg/m2 13437.1 5 g 97.8 [degF] 108 /min 97 % 97 % 112/78 mm[Hg] Poonam Allen [employer] 4 10:11:29 Social History Question Answer Notes LastModified by Organizat ion Details LastModified Time Tobacco Smoking Status Never Smoker Philly mcnair [employer] 04/17/2022 09:24:57 Do You Have An Advance Directive? No Information n ot available 12/29/2021 Is Your Home Air Conditioned? Yes Information not available 12/29/2021 Do You Wear A Helmet When Biking? No Information not available 10/16/2022 Are You Blind Or Do You Have Difficulty Seeing? No Information n ot available 07/30/2022 What Is Your Level Of Caffeine Consumption? Moderate Information not available 10/16/2022 Are You A Caregiver? No Information not available 10/16/2022 In The 14 Days Before Symptom Onset, Have You Had Close Contact With A Laboratory-confirm ed COVID-19 While That Case Was Ill? No Information n ot available 12/29/2021 In The 14 Days Before Symptom Onset, Have You Had Close Contact With A Person Who Is Under Investigation For COVID-19 While That Person Was Ill? No Information not available 12/29/2021 Have You Been To An Area Known To Be High Risk For COVID-19? No Information not available 12/29/2021 Are You Deaf Or Do You Have Serious Difficulty Hearing? No Information not available 07/30/2022 What Type Of Diet Are You Following? REGULAR Information n ot available 12/29/2021 Have There Been Any Changes To Your Family Or Social Situation? No Information no t available 12/29/2021 Are There Any Guns Present In Your Home? No Information not available 12/29/2021 Which Of Your Hands Is Dominant? Right Information n ot available 10/16/2022 Do You Have A Medical Power Of Central Supply Worker? No Information not available 12/29/2021 What Was The Date Of Your Most Recent Tobacco Screening? 07/14/2024 [email or web address] Information not available 07/14/2024 Do You Have Any Pets? Yes Information not available 10/16/2022 What Is Your Relationship Status? Information not available 12/29/2021 Do You Use Your Seat Belt Or Car Seat Routinely? Yes Information not available 12/29/2021 Are You Sexually Active? No Information not available 07/14/2024 Do You Have Smoke And Carbon Monoxide Detectors In Your Home? Yes Information not available 12/29/2021 Are You Passively Exposed To Smoke? No Information no t available 12/29/2021 Are There Any Smokers In Your House? No Information not available 12/29/2021 Do You Participate In Social Media? Yes Information not available 10/16/2022 Do You Use Sunscreen Routinely? No Information not available 12/29/2021 Has Tobacco Cessation Counseling Been Provided? No Information not available 12/29/2021 Have You Recently Traveled Abroad? No Information not available 12/29/2021 Do You Have Difficulty Walking Or Climbing Stairs? No Information not available 07/30/2022 Are You Currently In School? No Information not available 12/29/2021 Do You Have Any Dietary Restrictions? No Information not available 12/29/2021 Sex: Female Functional Status Question Answer Note LastModified by [employer] ion Details LastModified Time Do you use any illicit or recreational drugs? No Information not available 12/29/2021 Do you or have you ever used any other forms of tobacco or nicotine? No Information not available 12/29/2021 What is your level of alcohol consumption? None Information not available 12/29/2021 Are you currently employed? Yes Information not available 12/29/2021 Do you have transportation difficulties? No Information not available 10/16/2022 Are you able to walk independently without assistance or assistive devices? YESWOREST Information not available 07/30/2022 Do you have difficulty doing errands alone? No Information not available 07/30/2022 Are you able to care for yourself independently? Yes Information not available 12/29/2021 Do you have difficulty dressing, bathing, grooming, or toileting? No Information not available 07/30/2022 Mental Status Question Answer Note LastModified by Organizat ion Details LastModified Time Do you feel stressed (tense, restless, nervous, or anxious, or unable to sleep at night)? [id number] [email or web address] Information not available 10/16/2022 Do you have difficulty concentrating, remembering or making decisions? No Information no t available 07/30/2022 Family History Relationship Description Onset Age of this Age Resolved Age Notes LastModified by Organization Details LastModified Time Unspecified Relation Family history of malignant neoplasm [email or web address] Not available 2022 09:24:36 Unspecified Relation Family history of malignant neoplasm [email or web address] Not available 2022 09:24:38 Unspecified Relation Family history of Respiratory disease [email or web address] Not available 2022 09:24:41 Unspecified Relation Family history of diabetes mellitus type 2 [email or web address] Not available 2022 09:24:44 Unspecified Relation Family history of Respiratory disease [email or web address] Not available 2022 09:24:47 Medical History Condition Response Allergies (Food, seasonal, environmental ) Y Hospitalizations N Acid Reflux (GERD) Y Emergency room visit since last appointm ent. N GI Problems Y Asthma Y Gynecological History Statement/Question Response Date of Last Pap Smear 12/23/2019 Most Recent Mammogram 09/27/2023 Obstetrics History GPAL:G 0 P 0 0 0 0 Immunizations Vaccine Type Date Status Note Provider Nam e and Address Organization Details Recorded Time Influenza, split virus, quadrivalent, PF 1 completed BABS MYNEAR null, [employer], [employer] 12/29/2021 10:54:48 Influenza, split virus, quadrivalent, preservative 0 completed BABS MYNEAR null, [employer], [employer]. 12/29/2021 10:54:48 COVID-19 vaccine, vector-nr, rS-Ad26, PF, 0.5 mL 1 completed BABS MYNEAR null, [employer] 12/29/2021 10:54:48 Tdap 8 completed Elinor Jiménez null, [employer] 07/30/2022 14:57:18 Past Encounters Encounter ID Performer Location Encounter Start Date Encounter Closed Date Diagnosis/Indication Diagnosis SNOMED-CT Code Diagnosis ICD10 Code Diagnosis IMO Codes Diagnosis Note [id number] [place] [address] 12/29/2021 10:35:52 12/29/2021 11:21:08 Acute upper respiratory infection 79482991 J06.9 Influenza caused by Influenza A virus 582018042 J09.X2 Continue nightly use of the albuterol inhaler that she has at home, continue use of coolmist vaporizer, antipyreti cs for fever control. Push oral fluids. She was given a work excuse. [id number] [place] [address] 03/24/2022 11:24:49 03/24/2022 13:05:49 Constipation 28852840 K59.00 Patient presents with constipati on. Recommend increasing oral fluids with non-caffei nated, non-alcoho lic beverages. Increase daily dietary fiber. May drink prune juice or pear juice to initiate bowel regularity and then decrease as needed to maintain a once daily or every other day bowel habit. Tylenol or Motrin may be used as needed for cramping. Follow up as needed, or sooner if new symptoms develop. Moderate dehydration 185 5747520 105 E86.0 Oral hydration emphasized . [id number] Jagruti Corona [place] [address] 07/30/2022 14:21:56 07/30/2022 15:43:32 Lower respiratory tract infection 85422765 J22 Body mass index 25-29 - overweight 377753717 Z68.28 [id number] SHALONDA MACIAS [place] [address] 08/21/2022 10:22:47 08/21/2022 11:07:03 Community acquired pneumonia 569697533 J18.9 [id number] [place] [address] 08/25/2022 13:52:54 08/25/2022 15:04:32 Adult health examination 870812515 Z00.00 Tuberculos is screening 366858901 Z11.1 She needs annual tuberculos is screening for her employment . Acute bronchopneumonia 667783399 J18.0 Obtain chest x-ray, continue antibiotic , inhalers, Mucinex and allergy medication s. Screening mammography of bilateral breasts 6982022353 94793 Z12.31 Screening for malignant neoplasm of colon 680595967 Z12.11 Insomnia 513813923 G47.0 0 Body mass index 25-29 - overweight 406499085 Z68.29 [id number] [place] [address] 10/16/2022 09:36:46 10/16/2022 12:40:57 Chronic sinusitis 01763096 J32.9 [id number] Shyann Stapleton APRN [facility] [address] [place] [id number] 12/22/2022 16:59:31 12/23/2022 10:25:16 Pain in throat 269198847 R07.0 Gastroesop hageal reflux disease without esophagitis 345791215 K21.9 Insomnia 656188891 G47.0 0 Acute uppe r respiratory infection 12192791 J06.9 Patient presented with symptoms of upper respirator y infection. Advised to drink plenty of fluids, run a cool-mist humidifier in room at night, gargle salt water for sore throat, and get plenty of rest. Patient should avoid over-exert ion and reduce exposure to irritants such as smoke, cold, dry air, and dust. Treatment currently involves symptomati c relief. Patient may take acetaminop hen or ibuprofen as directed to reduce fever and body aches. Antihistam ine and decongesta nt usage was discussed and recommenda tions made. Patient understood these instructio ns and will follow up in the office in 10 days to 2 weeks if symptoms not improving. [id number] [place] [address] 03/22/2023 09:19:00 03/23/2023 12:47:16 Acute upper respiratory infection 97649022 J06.9 Body mass index 30+ - obesity 028593296 Z68.30 [id number] [place] [address] 03/23/2023 16:57:08 03/23/2023 18:02:16 Acute exacerbation of chronic obstructive pulmonary disease 089890866 J44.1 Cough The patient presents wet cough. The patient's condition is worsening. Based on the findings today we will begin medication therapy. Reviewed symptomati c care instructio ns, the expected course of these illnesses and explained that coughing can persist for some time. Provided precaution s for signs of worsening disease and instructio ns on contacting us if symptoms worsen. [id number] [place] [address] 09/03/2023 11:19:31 09/03/2023 12:14:03 Cough 14827145 R05.9 Acute exac erbation of chronic obstructive pulmonary disease 364755272 J44.1 Lower resp iratory tract infection 36502091 J22 Screening mammography 24 144678 Z12.31 Body mass index 25-29 - overweight 162641621 Z68.28 [id number] [place] [address] 09/13/2023 10:42:07 09/13/2023 12:03:42 Exacerbation of mild persistent asthma 609064410 J45.31 ? LLL infiltrate . Samples given of Airsupra and she was inst on use for rescue. Start Doxy and oral pred with mucinex and continue symbicort. She is to notify me if no improvemen t by weekend. [id number] Maria Fierro APRN [address] [address] 01/25/2024 09:53:01 01/26/2024 12:35:39 Acute urinary tract infection 595263409 N39.0 Dysuria 85347104 R30.0 Increased body mass index 32799654 E66.3 Body mass index 25-29 - overweight 112233510 Z68.28 [id number] [place] [address] 05/01/2024 10:56:45 05/01/2024 12:10:48 Fall 6115391 W19.XXXA Pain of le ft knee joint 4708869587 54049 M25.562 Pain of le ft shoulder joint 3972462992 6342628 M25.512 Osteoarthr itis of knee 121110277 M17.9 RICE, continue tylenol and voltaren gel. Will refer her to Ortho for knee OA injection. Contusion of left upper arm 3923263290 7201103 S40.022A Xrays are neg for fractures and dislocatio ns. RICE,rest, pain control explained. [id number] [place] [address] 06/22/2024 11:04:20 06/22/2024 11:48:29 Lower respiratory tract infection 52871191 J22 Acute uppe r respiratory infection 89240094 J06.9 Body mass index 25-29 - overweight 333454402 E66.3 16736799 [id number] Maylin Hernandez, KEYANA [place] [address] 07/14/2024 11:23:09 07/14/2024 14:27:09 Pain of knee region 2886999068 M25.562 47153290 Acute maxi llary sinusitis 47490776 J01.00 63350354 Pain of left calf 543605 3955 841402 M79.662 [id number] Health Concerns Section Related Observation LastModified by Organization Detai ls LastModified Time None Recorded Concern Status LastModified by Organization Details LastModified Time None Recorded Advance Directives Directive N: Payers Insurance Date Sequence Insurance Name Policy Number Policy Saab Covered Member ID Saab Member ID Guarantor Name 12/22/2022 1 *SELF PAY* Ti na Juarez 07/17/2024 1 [place] [id number] Marley Juarez [id number] Marley Juarez 12/22/2022 2 [employer] (PPO) Marley Juarez [id number] Marley Juarez 10/20/2022 1 [place] [id number] 2 Marley B Juarez [id number] Marley Juarez Notes Date Note Type Note Provider Name and Address Organization Details Recorded Time 09/13/19 24 text/htm l CoughReported by PatientHPIFor severity, patient reportsworseningandpain with coughbut reportsmoderate. For associated symptoms, patient reportswheezing,chest wall tenderness,shortness of breath,throat clearing,nasal discharge,tiredness, anddyspneabut reportsno fever,no chills,no chest pain,no heartburn,no nausea,no vomiting,no edema, andno agitation. For quality, patient reportsdry. For duration, patient reportsconstantandsubacute (3-8 weeks). For onset/timing, patient reportsgradualandbecomes worse as the day goes on. For context, patient reportsnon-smokerandhistory of asthma. For modifying factors, patient reportsotc medicationandinhaler(using symbicort and albuterol mdi without relief).ROS as noted in the HPI Was tx with zpak and oral pred on 09/02 and is worse Shyann Stapleton APRN [address] [place] [address], [phone], [facility] [employer] 09/13/2023 12:38:53 01/25/20 24 text/htm l Lower Urinary Tract Symptoms (LUTS)Reported by PatientHPIFor context, patient reportsabnormal voiding frequencybut reportsdenies excessive caffeine intake,no dyspareunia, anddenies new medication treatment. For associated symptoms, patient reportsabdominal pain,low back pain,nausea,urgency,frequency, anddysuria. For location, patient reportsbilateral. For quality, patient reportsdullandpressure. For severity, patient reportsworsening,mild, andmoderate. For duration, patient reportsacute(started yesterday).53 year old female presents with complaint of burning when she pees, having to pee more frequency, and still feeling like she needs to pee after she has already peed. She states that she started getting sick to her stomach yesterday will at work and then the other symptoms followerd last night after she got home.ROS as noted in the HPI consent for treatment obtained Maria Fierro APRN [address] [place], [address], [employer] 01/25/2024 10:14:48 05/02/19 25 text/htm l ROS as noted in the HPI Patient complains of pain, instability, and weakness with crepitus and grinding of the left knee for approximately 2 weeks. She has been using Tylenol and Voltaren gel. She reports this morning she fell down 2 steps at her home after her left knee gave way. She fell onto her left shoulder and left upper arm striking her door frame. She did not hit her head or lose consciousness. Shyann Stapleton APRN [address] [place], [address], [employer] 05/01/2024 13:12:07 06/23/19 25 text/htm l Upper Respiratory SymptomsReported by PatientUpper Respiratory SymptomsFor quality, patient reportsdry coughandnasal discharge. For associated symptoms, patient reportsshortness of breathbut reportsno chest pain,no sputum production,no cyanosis,no change in number of pillows needed to sleep at night,no sweats,no fever,no sore throat,no vomiting,no diarrhea,no rash,no nausea,no chills,no malaise, andno conjunctivitis. For location, patient reportschest,nasal, andears. For severity, patient reportsmildandmoderate. For duration, patient reportssymptoms lasting less than 2 weeks. For onset/timing, patient reportsgradual. For context, patient reportsno sick contacts,no foreign travel, andnon-smoker.53 year old female presents with complaint of shortness of breath, dry cough, runny/stuffy nose, and ear pain that started day before yesterday. The shortness of breath and ear pain started to get worse today. She states that she has a hx of asthma and that twice a year she starts to feel this way.ROS as noted in the HPI Maria Fierro APRN [address] [place], [address], [employer] 06/22/2024 11:20:53 07/15/19 25 text/htm l Patient presents for left knee pain. She has had ongoing knee pain for awhile, but then 2-3 days ago it is to the point that it is hard to walk on it. She had an injection several months ago and it was doing much better, but it has progressively worsened. In the last two days pain is 8/10 when she walks on it.She also noticed left ankle swelling and posterior calf pain in the last few weeks. She feels like her muscle is having spasm. She has had blood clot in the past. Her leg has not been red or warm.She has also had URI x 1 week. In the last 2-3 days she has developed maxilary sinus pain and pressure that is much worse. Maylin Hernandez, KEYANA [address] [place], [address], [employer] 07/17/2024 11:07:44 OBGyn Episode No OBEpisode recorded.
== END 2024-11-19 23:59 | disposition home or self-care (01) ==
LOC: LAB.DROPOF 11-20 11:55
PROVIDERS: PCP Student in an Organized Health Care Education/Training Program; Visit Provider Student in an Organized Health Care Education/Training Program
DX: N39.0 Urinary tract infection, site not specified (principal)
CPT/HCPCS: 87086

== ENCOUNTER 2024-12-04 13:22 | Outpatient (CLI) | payer BC, SELFPAY ==
--- OUTSIDE RECORDS SUMMARY | 2024-12-04 13:35 | XMS_ITS | Clinical Summary ---
Author Organization [facility] Address [address] [place] [address] Care Team Providers Care [employer] Man Name Role Phone Aura Stapleton CHETAN Primary Care Provider [phone] Allergies Active Allergy Reactions Criticality Noted Date [...] of 2) 07/09/2021 INFLUENZA VACCINE 09/15/[address] [place] [address] [place] [address] PPO Care Teams Fish [employer] Man Relationship Specialty Start Date End Date Aura Stapleton APRN [address] [place] [address] PCP - General Nurse Practitioner 10/30/18
--- NOTE | 2024-12-04 13:43 | MM_ITS ---
PROCEDURE INFORMATION: Exam: MG Bilateral Screening 3D Mammography Exam date and time: 12/04/2024 1:43 PM Age: 54 years old Clinical indication: Screening examination TECHNIQUE: Imaging protocol: Bilateral Screening tomosynthesis and 2D mammography including computer-aided detection (CAD) when performed. COMPARISON: 1. MG MM DIG MAMM DX UNILAT LT CAD 09/27/2023 1:56 PM 2. MG MM DIG SCREENING MAMM BI W/CAD 09/14/2023 9:38 AM FINDINGS: MAMMOGRAPHY: Breast composition: There are scattered areas of fibroglandular density. Mass: Questioned 0.7 cm mass upper-outer left breast middle depth. Architectural distortion: None. Calcifications: No suspicious calcifications. Asymmetric density: None. Skin thickening: None. Axillary adenopathy: None. IMPRESSION: Questioned left breast mass.Recommend left breast diagnostic mammogram including spot compression views of the left breast in the CC and MLO projections, a full 90 degree lateral view, and left breast ultrasound for further evaluation. ASSESSMENT: BI-RADS Category 0: Incomplete- Need Additional Imaging Evaluation.
== END 2024-12-04 23:59 | disposition home or self-care (01) ==
LOC: RAD 13:23
PROVIDERS: PCP Nurse Practitioner Family; Visit Provider Nurse Practitioner Family
DX: Z12.31 Encounter for screening mammogram for malignant neoplasm of breast (principal); R92.323 Mammographic fibroglandular density, bilateral breasts; N63.21 Unspecified lump in the left breast, upper outer quadrant
CPT/HCPCS: 77063; 77067

== ENCOUNTER 2024-12-31 09:58 | Outpatient (CLI) | payer BC, SELFPAY ==
[2024-12-31 21:06] LABS: Coronavirus 19, PCR Not Detected (NotDetected); Influenza A, PCR Not Detected (NotDetected); Influenza B, PCR Not Detected (NotDetected)
== END 2024-12-31 23:59 | disposition home or self-care (01) ==
LOC: LAB.DROPOF 01-01 09:52
PROVIDERS: PCP Nurse Practitioner Family; Visit Provider Student in an Organized Health Care Education/Training Program
DX: J06.9 Acute upper respiratory infection, unspecified (principal)
CPT/HCPCS: 87631

== ENCOUNTER 2025-01-01 14:37 | Outpatient (CLI) | payer BC, SELFPAY ==
--- NOTE | 2025-01-01 14:40 | MM_ITS ---
PROCEDURE INFORMATION: Exam: US Left Breast, Complete MG Left Diagnostic Breast Tomosynthesis Exam date and time: 01/01/2025 2:44 PM Age: 54 years old Clinical indication: Callback from screening for a left breast mass. TECHNIQUE: Imaging protocol: Complete ultrasound of all four quadrants of the left breast and the retroareolar regions, including ultrasound of the axilla when performed. Left Diagnostic tomosynthesis and 2D mammography including computer-aided detection (CAD) when performed. Unilateral or bilateral exam. COMPARISON: MG MM DIG SCREENING MAMM BI W/CAD 12/04/2024 1:43 PM FINDINGS: MAMMOGRAPHY: Breast composition: There are scattered areas of fibroglandular density. Breast mammogram findings: There is a 0.7 cm mass in the left breast upper outer quadrant, best seen on the MLO spot compression view. ULTRASOUND: Breast ultrasound findings: Ultrasound of the left breast in the upper-outer quadrant demonstrates a 0.8 x 0.6 x 0.9 cm possible lymph node at 2 o'clock, 9 cm from the nipple that correlates with the mammogram finding. There is no suspicious mass, shadowing, or distortion. No axillary adenopathy. IMPRESSION: Probably benign finding in the left breast that correlates with a lymph node on ultrasound at 2 o'clock, 9 cm from the nipple. A diagnostic left breast mammogram and targeted left breast ultrasound in 6 months is recommended to ensure stability. ASSESSMENT: BI-RADS Category 3: Probably benign.
--- OUTSIDE RECORDS SUMMARY | 2025-01-01 21:48 | XMS_ITS | Clinical Summary ---
Author Organization [facility] Address [address] [place] [address] Care Team Providers Care Guest Services Name Role Phone Aura Stapleton CHETAN Primary Care Provider [phone] Allergies Active Allergy Reactions Criticality Noted Date [...] of 2) 07/09/2021 INFLUENZA VACCINE 09/15/[address] [place] [address] [place] [address] PPO Care Teams Guest Services Relationship Specialty Start Date End Date Aura Stapleton APRN [address] [place] [address] PCP - General Nurse Practitioner 10/30/18
== END 2025-01-01 23:59 | disposition home or self-care (01) ==
LOC: RAD 14:38
PROVIDERS: PCP Nurse Practitioner Family; Visit Provider Nurse Practitioner Family
DX: N63.21 Unspecified lump in the left breast, upper outer quadrant (principal); R92.322 Mammographic fibroglandular density, left breast
CPT/HCPCS: 76641; 77061; 77065; G0279